=== PATIENT | female | born 1975 | race Caucasian/White ===

== ENCOUNTER 2017-05-18 23:14 | Inpatient (IN) | payer OTHER ==
--- NOTE | 2017-05-19 01:08 | PDOC ---
History of Present Illness - General Chief Complaint: Pain Stated Complaint: PAIN Time Seen by Provider: 05/19/17 00:55 - History of Present Illness Initial Comments: 05/19/17 01:04 Ms. Ceballos is a 41 yo female w/ no pmh who presents c/o midline epigastric pain. She reports the pain had initially started 3 weeks ago but went away, came back again a few days ago and again got better, and now has returned with increased intensity today. She cannot related it to food or any other trigger. Ms. Ceballos endorses associated nausea as well. She has not taken anything for the pain. The patient denies chest pain, shortness of breath, headache and dizziness. Denies fever, chills, vomit, diarrhea and constipation. Denies dysuria, frequency, urgency and hematuria. Allergies: NKDA 05/19/17 01:08 Past History - Past Medical History Allergies/Adverse Reactions: Allergies Allergy/AdvReac Type Severity Reaction Status Date / Time No Known Allergies Allergy Verified 05/19/17 00:24 Home Medications: Ambulatory Orders NK [No Known Home Medication] 05/19/17 - Suicide/Smoking/Psychosocial Hx Smoking History: Never smoked Have you smoked in the past 12 months: No Information on smoking cessation initiated: No Hx Alcohol Use: No Drug/Substance Use Hx: No Review of Systems - Review of Systems Comments:: 05/19/17 01:07 GENERAL/CONSTITUTIONAL: No fever or chills. No weakness. HEAD, EYES, EARS, NOSE AND THROAT: No change in vision. No ear pain or discharge. No sore throat. CARDIOVASCULAR: No chest pain or shortness of breath RESPIRATORY: No cough, wheezing, or hemoptysis. GASTROINTESTINAL: +Nausea with abdominal pain as described. No diarrhea or constipation. GENITOURINARY: No dysuria, frequency, or change in urination. MUSCULOSKELETAL: No joint or muscle swelling or pain. No neck or back pain. SKIN: No rash NEUROLOGIC: No headache, vertigo, loss of consciousness, or change in strength/ sensation. ENDOCRINE: No increased thirst. No abnormal weight change HEMATOLOGIC/LYMPHATIC: No anemia, easy bleeding, or history of blood clots. ALLERGIC/IMMUNOLOGIC: No hives or skin allergy. *Physical Exam - Vital Signs Last Vital Signs Temp Pulse Resp BP Pulse Ox 98.3 F 59 L 14 108/61 100 05/19/17 00:24 05/19/17 00:24 05/19/17 00:24 05/19/17 00:24 05/19/17 00:24 - Physical Exam Comments: 05/19/17 01:08 GENERAL: Awake, alert, and fully oriented, in no acute distress HEAD: No signs of trauma, normocephalic, atraumatic EYES: PERRLA, EOMI, sclera anicteric, conjunctiva clear ENT: Auricles normal inspection, hearing grossly normal, nares patent, oropharynx clear without exudates. Moist mucosa NECK: Normal ROM, supple, no lymphadenopathy, JVD, or masses LUNGS: No distress, speaks full sentences, clear to auscultation bilaterally HEART: Regular rate and rhythm, normal S1 and S2, no murmurs, rubs or gallops, peripheral pulses normal and equal bilaterally. ABDOMEN: +Epigastric tenderness. Soft, normoactive bowel sounds. No guarding, no rebound. No masses EXTREMITIES: Normal inspection, Normal range of motion, no edema. No clubbing or cyanosis. NEUROLOGICAL: Cranial nerves II through XII grossly intact. Normal speech, normal gait, no focal sensorimotor deficits SKIN: Warm, Dry, normal turgor, no rashes or lesions noted. ED Treatment Course - LABORATORY CBC & Chemistry Diagram: 05/19/17 01:30 05/19/17 01:30 Medical Decision Making - Medical Decision Making 05/19/17 01:11 Ms. Ceballos is a 41 yo male presenting w/ symptoms concerning for GERD. Workup begun with medications of zofran/NS/pepcid ordered for symptomatic relief. 05/19/17 03:45 Hemoglobin noted to be 6.5. Type and screen sent in preparation for transfusion. CT Abdomen/Pelvis ordered for further evaluation. 05/19/17 06:40 Patient signed out to oncoming team for further care. *DC/Admit/Observation/Transfer Diagnosis at time of Disposition: Low hemoglobin, Pain - Discharge Dispostion Admit: Yes - Referrals - Patient Instructions - Post Discharge Activity
[2017-05-19] MEDS ORDERED: SODIUM CHLORIDE 1,000 ML IV STA (01:09)
[2017-05-19] MEDS ORDERED: ONDANSETRON 4 MG/2 ML VIAL IVPUSH ONE (01:09)
[2017-05-19] MEDS ORDERED: FAMOTIDINE IV 20 MG/12 ML VIAL IVPB ONE (01:09)
[2017-05-19] MEDS ORDERED: MAG HYDROX/AL HYDROX/SIMETH 30 ML UNIT-DOSE CUP ONE (01:37)
[2017-05-19] MEDS ORDERED: FAMOTIDINE 20 MG/50 ML IVPB 20 MG/50 ML MG IVPB ONE (01:37)
[2017-05-19 01:45] LABS: BASO % 1.2 % (0-2.0); EOS % 1.8 % (0-4.5); HEMATOCRIT 23.8 % (32.4-45.2); LYMPH % 23.6 % (8-40); MCHC 27.4 g/dl (32.0-36.0); MEAN CELL VOLUME 52.6 fl (80-96); MEAN PLT VOLUME 8.7 fl (7.5-11.1); MONO % 10.5 % (3.8-10.2); NEUT % 62.9 % (42.8-82.8); PLATELET COUNT 523 K/MM3 (134-434); RBC 4.52 M/mm3 (3.60-5.2); RDW 21.1 % (11.6-15.6); WHITE BLOOD COUNT 5.9 K/mm3 (4.0-10.0)
[2017-05-19] MEDS ORDERED: MAG HYDROX/AL HYDROX/SIMETH 30 ML UNIT-DOSE CUP PO ONE (01:47)
[2017-05-19] MEDS ORDERED: ONDANSETRON 4 MG/2 ML VIAL ONE (01:49)
[2017-05-19 01:50] LABS: MCH 14.4 pg (25.7-33.7)
[2017-05-19 01:53] LABS: ADD RBC MORPHOLOGY YES; HEMOGLOBIN 6.5 GM/dL (10.7-15.3)
[2017-05-19 01:54] LABS: ANISOCYTOSIS 2+
[2017-05-19 02:06] LABS: ALBUMIN 3.3 g/dl (3.4-5.0); ALK PHOS 273 U/L (45-117); ANION GAP 9 (8-16); BILIRUBIN,TOTAL 1.8 mg/dL (0.2-1.0); BLOOD UREA NITROGEN 8 mg/dL (7-18); CALCIUM 8.6 mg/dL (8.5-10.1); CHLORIDE 107 mmol/L (98-107); CO2 25 mmol/L (21-32); CREATININE 0.4 mg/dL (0.55-1.02); GLUCOSE,RANDOM 100 mg/dL (74-106); LIPASE 95 U/L (73-393); SGOT/AST 299 U/L (15-37); SGPT/ALT 356 U/L (12-78); SODIUM 141 mmol/L (136-145); TOT PROT 7.1 g/dl (6.4-8.2)
--- NOTE | 2017-05-19 07:05 | PDOC ---
*Physical Exam - Vital Signs Last Vital Signs Temp Pulse Resp BP Pulse Ox 98.3 F 59 L 14 108/61 100 05/19/17 00:24 05/19/17 00:24 05/19/17 00:24 05/19/17 00:24 05/19/17 01:11 ED Treatment Course - LABORATORY CBC & Chemistry Diagram: 05/19/17 01:30 05/19/17 01:30 - ADDITIONAL ORDERS Additional order review: Laboratory Results 05/19/17 05/19/17 05/19/17 04:10 02:40 01:30 Sodium 141 Potassium 4.0 Chloride 107 Carbon Dioxide 25 Anion Gap 9 BUN 8 Creatinine 0.4 L Creat Clearance w eGFR > 60 Random Glucose 100 Calcium 8.6 Total Bilirubin 1.8 H AST 299 H ALT 356 H Alkaline Phosphatase 273 H Total Protein 7.1 Albumin 3.3 L Lipase 95 Stool Occult Blood Negative Blood Type O POSITIVE Antibody Screen Negative 05/19/17 01:30 RBC 4.52 MCV 52.6 L MCHC 27.4 L RDW 21.1 H MPV 8.7 Neutrophils % 62.9 Lymphocytes % 23.6 Monocytes % 10.5 H Eosinophils % 1.8 Basophils % 1.2 - Medications Given in the ED: ED Medications Discontinued Medications Generic Name Dose Route Start Last Admin Trade Name Freq PRN Reason Stop Dose Admin Al Hydroxide/Mg Hydroxide 30 ml 05/19/17 01:47 05/19/17 01:53 Mylanta Oral Suspension - PO 05/19/17 01:48 30 ml ONCE ONE Administration Famotidine 20 mg in 12 mls @ 144 mls/hr 05/19/17 01:09 05/19/17 01:48 Pepcid 20 Mg/12 Ml Push IVPB 05/19/17 01:13 144 mls/hr ONCE ONE Administration Sodium Chloride 1,000 mls @ 1,000 mls/hr 05/19/17 01:09 05/19/17 01:47 Normal Saline - IV 05/19/17 02:08 1,000 mls/hr ASDIR STA Administration Ondansetron HCl 4 mg 05/19/17 01:09 05/19/17 01:48 Zofran Injection IVPUSH 05/19/17 01:10 4 mg ONCE ONE Administration Medical Decision Making - Medical Decision Making 05/19/17 07:03 The patient was signed out to me by Dr. Seay, night team. The patient is a 41F with no PMH w/ epigastric pain found to have hgb of 6.5. Unsure if past anemia. Re-T+S. Pending CT scan. 2 units PRBC's ordered. 05/19/17 08:[address] Mcwilliams for inpatient admission. *DC/Admit/Observation/Transfer Diagnosis at time of Disposition: Low hemoglobin, Pain - Discharge Dispostion Condition at time of disposition: Stable Admit: Yes - Referrals - Patient Instructions - Post Discharge Activity
--- NOTE | 2017-05-19 08:23 | HP ---
CHIEF COMPLAINT: abdominal pain PCP: none HISTORY OF PRESENT ILLNESS: This is a 41 year old Armenian speaking female with no known past medical history , that does not have a primary physician, who presents with a 2 day history of a burning, non radiating, mid epigastric pain that is aggravated by eating and accompanied by nausea. She has been taking Advil intermittently to relieve pain. Patient also notes she had few episodes of black stool/diarrhea about two weeks ago. She denies fever, chills, vomiting, chest pain, sob, urinary symptoms , constipation. Denies recent travel. No hx of colon Ca in family. No colonoscopy in past. She did have an episode of anemia that she needed blood transfusion with she had hernia repair surgery. She has a history of heavy periods; LMP 04/30/17. Found to have hemoglobin of 6.5 in ER. Heme occult negative Recent Travel: none PAST MEDICAL HISTORY: NK PAST SURGICAL HISTORY: hernia repair; 1999? Social History: Smoking:no Alcohol:no Drugs: no Family History: Allergies No Known Allergies Allergy (Verified 05/19/17 00:24) HOME MEDICATIONS: Home Medications Medication Instructions Recorded NK [No Known Home Medication] 05/19/17 REVIEW OF SYSTEMS CONSTITUTIONAL: Absent: fever, chills, diaphoresis, generalized weakness, malaise, loss of appetite, weight change HEENT: Absent: rhinorrhea, nasal congestion, throat pain, throat swelling, difficulty swallowing, mouth swelling, ear pain, eye pain, visual changes CARDIOVASCULAR: Absent: chest pain, syncope, palpitations, irregular heart rate, lightheadedness , peripheral edema RESPIRATORY: Absent: cough, shortness of breath, dyspnea with exertion, orthopnea, wheezing, stridor, hemoptysis GASTROINTESTINAL: Positive: abdominal pain, distension, nausea Absent: , vomiting, diarrhea, constipation, melena, hematochezia GENITOURINARY: Absent: dysuria, frequency, urgency, hesitancy, hematuria, flank pain, genital pain MUSCULOSKELETAL: Absent: myalgia, arthralgia, joint swelling, back pain, neck pain SKIN: Absent: rash, itching, pallor HEMATOLOGIC/IMMUNOLOGIC: Absent: easy bleeding, easy bruising, lymphadenopathy, frequent infections ENDOCRINE: Absent: unexplained weight gain, unexplained weight loss, heat intolerance, cold intolerance NEUROLOGIC: Absent: headache, focal weakness or paresthesias, dizziness, unsteady gait, seizure, mental status changes, bladder or bowel incontinence PSYCHIATRIC: Absent: anxiety, depression, suicidal or homicidal ideation, hallucinations. PHYSICAL EXAMINATION Vital Signs - 24 hr 05/19/17 05/19/17 05/19/17 00:24 01:11 07:03 Temperature 98.3 F 98.0 F Pulse Rate 59 L Pulse Rate [ 68 Right Radial] Respiratory 14 14 Rate Blood Pressure 108/61 Blood Pressure 114/45 [Left Arm] O2 Sat by Pulse 100 100 96 Oximetry (%) 05/19/17 08:05 Temperature Pulse Rate Pulse Rate [ 64 Right Radial] Respiratory 17 Rate Blood Pressure Blood Pressure 116/42 [Left Arm] O2 Sat by Pulse 100 Oximetry (%) GENERAL: Awake, alert, and fully oriented, in no acute distress. HEAD: Normal with no signs of trauma. EYES: Pupils equal, round and reactive to light, extraocular movements intact, sclera anicteric, conjunctiva clear. No lid lag. EARS, NOSE, THROAT: Ears normal, nares patent, oropharynx clear without exudates. Moist mucous membranes. NECK: Normal range of motion, supple without lymphadenopathy, JVD, or masses. LUNGS: Breath sounds equal, clear to auscultation bilaterally. No wheezes, and no crackles. No accessory muscle use. HEART: Regular rate and rhythm, normal S1 and S2 without murmur, rub or gallop. ABDOMEN: Soft, mildly tender mid epigastrum, not distended, normoactive bowel sounds, no guarding, no rebound, no masses. No hepatomegaly or splenomegaly. Murhphy negative MUSCULOSKELETAL: Normal range of motion at all joints. No bony deformities or tenderness. No CVA tenderness. UPPER EXTREMITIES: 2+ pulses, warm, well-perfused. No cyanosis. No clubbing. No peripheral edema. LOWER EXTREMITIES: 2+ pulses, warm, well-perfused. No calf tenderness. No peripheral edema. NEUROLOGICAL: Cranial nerves II-XII intact. Normal speech. Normal gait. PSYCHIATRIC: Cooperative. Good eye contact. Appropriate mood and affect. SKIN: Warm, dry, normal turgor, no rashes or lesions noted, normal capillary refill. Laboratory Results - last 24 hr 05/19/17 05/19/17 05/19/17 01:30 01:30 02:40 WBC 5.9 RBC 4.52 Hgb 6.5 L* Hct 23.8 L MCV 52.6 L MCH 14.4 L MCHC 27.4 L RDW 21.1 H Plt Count 523 H MPV 8.7 Neutrophils % 62.9 Lymphocytes % 23.6 Monocytes % 10.5 H Eosinophils % 1.8 Basophils % 1.2 Hypochromia 3+ Anisocytosis 2+ Microcytosis 3+ Sodium 141 Potassium 4.0 Chloride 107 Carbon Dioxide 25 Anion Gap 9 BUN 8 Creatinine 0.4 L Creat Clearance w eGFR > 60 Random Glucose 100 Calcium 8.6 Total Bilirubin 1.8 H AST 299 H ALT 356 H Alkaline Phosphatase 273 H Total Protein 7.1 Albumin 3.3 L Lipase 95 Serum , Qual Stool Occult Blood Negative Blood Type Antibody Screen 05/19/17 05/19/17 04:10 06:50 WBC RBC Hgb Hct MCV MCH MCHC RDW Plt Count MPV Neutrophils % Lymphocytes % Monocytes % Eosinophils % Basophils % Hypochromia Anisocytosis Microcytosis Sodium Potassium Chloride Carbon Dioxide Anion Gap BUN Creatinine Creat Clearance w eGFR Random Glucose Calcium Total Bilirubin AST ALT Alkaline Phosphatase Total Protein Albumin Lipase Serum , Qual Negative Stool Occult Blood Blood Type O POSITIVE Antibody Screen Negative ASSESSMENT/PLAN: This is a 41 year old female with no known medical history, does not f/u with doctors, presents with 2 day history of mid epigastric abdominal pain, melena, and hemoglobin og 6.5; r/o GI bleed. #Microcytic Anemia ; poss anemia of chronic dis/iron def anemia/ r/o GI bleed; sec to large fibroid ? found on CT -IVF -Iron studies -transfuse 2U PRBC -monitor cbc for adequate response #abdominal pain with elevated LFTs; possible ulcer/gastritis; r/o hepatobiliary etiology -protonix 40mg qd -npo for now -abdominal CT showing normal liver with cystic changes with in hector hepatis; and dilation of biliary tree; no stones in gallbladder; and bilateral hydronephrosis with obstructing large uterus and large fibroid -abdominal MRI pending -hepatitis panel -GI consulted/Plastics Fabricator And Assembler consulted FEN: Fluids: ns 125mls hr Electrolytes:wnl Diet: npo VTE: scds Disposition: inpt med surg Case discussed with attending Dr. Kathi Mcwilliams-PGY 2 Problem List - Problem (1) Abdominal pain Code(s): R10.9 - UNSPECIFIED ABDOMINAL PAIN (2) Abnormal liver enzymes Code(s): R74.8 - ABNORMAL LEVELS OF OTHER SERUM ENZYMES (3) Anemia Code(s): D64.9 - ANEMIA, UNSPECIFIED Qualifiers: Anemia type: iron deficiency Visit type - Emergency Visit Emergency Visit: Yes ED Registration Date: 05/19/17 Care time: The patient presented to the Emergency Department on the above date and was hospitalized for further evaluation of their emergent condition. - New Patient This patient is new to me today: Yes Date on this admission: 05/20/17 - Critical Care Critical Care patient: No Hospitalist Screening - Colonoscopy Questionnaire Colonoscopy Questionnaire: none - Patient: 50 - 75 years old and never had a screening colonoscopy: No History of colon or rectal polyps, or CA: No History of IBD, Crohn's disease or UC: No History of abdominal radiation therapy as a child: No - Relative: 1 with colon or rectal CA, or polyps at age 60 or younger: No Colon or rectal CA diagnosed at age 45 or younger: No Multiple relatives with colon or rectal CA: No - Outcome: Screening Result: Negative Screen
[2017-05-19] MEDS: DEXTROSE 5%-NORMAL SALINE 1,000 ML IV SCH (08:34)
--- NOTE | 2017-05-19 08:52 | EKG ---
Test Reason : Blood Pressure : / mmHG Vent. Rate : 055 BPM Atrial Rate : 055 BPM P-R Int : 138 ms QRS Dur : 080 ms QT Int : 460 ms P-R-T Axes : 049 036 025 degrees QTc Int : 440 ms SINUS BRADYCARDIA OTHERWISE NORMAL ECG NO PREVIOUS ECGS AVAILABLE Confirmed by Tomy Fair MD ([id number]) on 05/19/2017 8:52:25 AM Referred By: Confirmed By:Tomy Fair MD
--- NOTE | 2017-05-19 09:47 | PN ---
Teaching Attending Note Name of Resident: Odalis Mcwilliams ATTENDING PHYSICIAN STATEMENT I saw and evaluated the patient. I reviewed the resident's note and discussed the case with the resident. I agree with the resident's findings and plan as documented. SUBJECTIVE: This is a 41 year old woman with a history of anemia who comes to the ED complaining of burning epigastric pain with nausea x 2 days. Symptoms are worse with meals. She has been taking Advil for her symptoms. She reports having black stool about two weeks ago and heavy periods. She required a transfusion prior to hernia surgery. She has not had a GI evaluation for anemia. OBJECTIVE: Vital Signs Period Temp Pulse Resp BP Sys/Santiago Pulse Ox Last 24 Hr 98.0 F-98.3 F 59-68 14-17 108-116/42-61 96-100 HEART: S1S2, RRR LUNGS: Clear ABDOMEN: Obese, soft, non-tender, non-distended, normal BS EXTREMITIES: No edema Laboratory Tests 05/19/17 05/19/17 05/19/17 01:30 01:30 02:40 WBC 5.9 RBC 4.52 Hgb 6.5 L* Hct 23.8 L MCV 52.6 L MCH 14.4 L MCHC 27.4 L RDW 21.1 H Plt Count 523 H MPV 8.7 Neutrophils % 62.9 Lymphocytes % 23.6 Monocytes % 10.5 H Eosinophils % 1.8 Basophils % 1.2 Hypochromia 3+ Anisocytosis 2+ Microcytosis 3+ Sodium 141 Potassium 4.0 Chloride 107 Carbon Dioxide 25 Anion Gap 9 BUN 8 Creatinine 0.4 L Creat Clearance w eGFR > 60 Random Glucose 100 Calcium 8.6 Total Bilirubin 1.8 H AST 299 H ALT 356 H Alkaline Phosphatase 273 H Total Protein 7.1 Albumin 3.3 L Lipase 95 Serum , Qual Stool Occult Blood Negative Blood Type Antibody Screen 05/19/17 05/19/17 05/19/17 04:10 06:50 08:10 WBC RBC Hgb Hct MCV MCH MCHC RDW Plt Count MPV Neutrophils % Lymphocytes % Monocytes % Eosinophils % Basophils % Hypochromia Anisocytosis Microcytosis Sodium Potassium Chloride Carbon Dioxide Anion Gap BUN Creatinine Creat Clearance w eGFR Random Glucose Calcium Total Bilirubin AST ALT Alkaline Phosphatase Total Protein Albumin Lipase Serum , Qual Negative Stool Occult Blood Blood Type O POSITIVE O POSITIVE Antibody Screen Negative Home Medications Medication Instructions Recorded NK [No Known Home Medication] 05/19/17 ASSESSMENT AND PLAN: This is a 41 year old woman with a history of anemia requiring transfusion who presented to the ED with 2 days of epigastric pain and nausea. She reports heavy periods and recent black stool. She was found to have Hgb 6.5, MCV 52.6, AST 299, ALT 356, alk phos 273. Stool is heme negative. CT shows enlarged fibroid uterus with bilateral hydroureteronephrosis. 1. Microcytic anemia with epigastric pain, nausea, recent black stool, hepatic transaminitis - Rule-out hepatobiliary cause of her pain and nausea - Menorrhagia from uterine fibroids is likely cause of microcytic anemia but must consider PUD - NPO - Start Protonix - Check iron studies - Transfuse 2 units PRBCs - Monitor hemoglobin - GI, General Ledger Accountant consults 2. Obesity
--- NOTE | 2017-05-19 11:18 | CON.GI ---
Consult Consult Specialty:: GI: Dr. Anamaria gamboa for Dr. Gunter Referred by:: Hospitalist Service Reason for Consultation:: Anemia - History of Present Illness Chief Complaint: I had pain (points towards epigastrium). History obtained via Ms. Ceballos's nurse Jess who is yakut speaking History of Present Illness: 41F admitted through [facility] ER for evaluation of epigastric pain. She describes the pain as sharp, intermittent, occurring with or without meals and improved with advil. While it did not worsen her pain, she felt more bloated after meals this week. She was taking 1-2 advils intermittently due to this pain over the last three days however yesterday it did not help and therefore sought evaluation in the ER. In the ER triage vitals were T: 98.3 P: 59 BP: 108/61. She was found to be anemic with hgb 6.5 and guaiac negative. LFTs were elevated as well including transaminases / ALP and bilirubinn. CT scan revealed ? cystic structure in the helena hepatis (? tortuous cystic duct) and She denies rectal bleeding, vomiting of blood but states that 2 weeks ago she vomited (food material) and had dark BM's. She did take pepto bismol at this time but believes that she had taken it after the episode of dark BM's. The pain is improved today. She denies a known history of liver disease / IVDU. She has had blood transfusions last year prior to a hernia repair (states done at [facility] last year). She has never had an upper endoscopy or colonoscopy. There is no family history of colorectal cancer or other GI malignancy. She has no regular medical care as an outpatient but does know that she has been told of anemia. She has chronically heavy menstrual periods with passage of clots at times. - History Source History Provided By: Patient Limitations to Obtaining History: No Limitations - Past Medical History Heme/Onc: Yes: Anemia - Past Surgical History Past Surgical History: Yes: Hernia Repair (umbilical hernia repair) - Alcohol/Substance Use Hx Alcohol Use: No - Smoking History Smoking history: Never smoked Have you smoked in the past 12 months: No - Social History Usual Living Arrangement: With Spouse ADL: Independent Occupation: Unemployed Place of : Other ([place]) History of Recent Travel: No Home Medications - Allergies Allergies/Adverse Reactions: Allergies Allergy/AdvReac Type Severity Reaction Status Date / Time No Known Allergies Allergy Verified 05/19/17 00:24 - Home Medications Home Medications: Ambulatory Orders NK [No Known Home Medication] 05/19/17 Family Disease History - Family Disease History Family Disease History: Other: Father (alive: healthy), Mother (: 55: asthma ), Brother (2, healthy), Sister (3, healthy), Son (1 healthy), Daughter (2, 1 with raynaud's) Other Family History: No family history of colorectal cancer or other GI malignancy Review of Systems - Review of Systems Constitutional: denies: Chills, Fever, Unintentional Wgt. Loss Cardiovascular: denies: Chest Pain Respiratory: denies: SOB Gastrointestinal: reports: Abdominal Pain, Bloating, Indigestion. denies: Constipation, Diarrhea Physical Exam-GI Vital Signs: Vital Signs Temperature 98.0 F 05/19/17 07:03 Pulse Rate 64 05/19/17 08:05 Respiratory Rate 17 05/19/17 08:05 Blood Pressure 116/42 05/19/17 08:05 O2 Sat by Pulse Oximetry (%) 100 05/19/17 08:05 Constitutional: Yes: Calm Eyes: No: Sclera Icterus Cardiovascular: Yes: Regular Rate and Rhythm Respiratory: Yes: CTA Bilaterally Gastrointestinal Inspection: No: Distention, Scars ...Auscultate: Yes: Normoactive Bowel Sounds ...Palpate: Yes: Tenderness (very mild TTP in epigastrium). No: Hepatomegaly, Splenomegaly ...Percussion: No: Tympanitic ...Rectal Exam: Yes: Other (with sort worker present: no external lesions, no masses, no stool/blood/melena) Edema: No (No LE edema) Neurological: Yes: Alert, Oriented Labs: CBC, BMP 05/19/17 01:30 05/19/17 01:30 Hepatic Panel Total Bilirubin 2.4 mg/dL (0.2-1.0) H D 05/19/17 11:12 Direct Bilirubin 1.7 mg/dL (0.0-0.2) H 05/19/17 11:12 AST 276 U/L (15-37) H 05/19/17 11:12 ALT 369 U/L (12-78) H 05/19/17 11:12 Alkaline Phosphatase 265 U/L (45-117) H 05/19/17 11:12 Albumin 3.2 g/dl (3.4-5.0) L 05/19/17 11:12 Imaging - Results Cat Scan: Report Reviewed, Image Reviewed Problem List - Problems (1) Abnormal liver enzymes Assessment/Plan: With upper abdominal complaints, hepatobiliary pathology such as retained CBD stone, portal vein thrombus / alternate pathology needs to be excluded. She denies known liver disease but has poor medical follow-up Plan: Ordered triple phase MRI of the abdomen with and without contrast with MRCP Ordered hepatitis serologies Monitor LFTs Avoid hepatotoxic agents Code(s): R74.8 - ABNORMAL LEVELS OF OTHER SERUM ENZYMES (2) Anemia Assessment/Plan: Component of Iron deficiency. ? if related to cableway operator source of blood source / fibroid uterus with upper GI complaints / ? dark BM's previously I did discuss EGD to exclude upper GI pathology via slab grinder (patient's nurse). We discussed potential risks of the procedure like but not limited to bleeding, perforation requiring surgery to repair, infection, sedation medication effects all of which could be potentially life threatening. she has agreed. Will determine timing of EGD based on MRI findings. If she has significant biliary pathology requiring ERCP, EGD could be done just prior to this Code(s): D64.9 - ANEMIA, UNSPECIFIED Qualifiers: Anemia type: iron deficiency (3) Low hemoglobin Code(s): D64.9 - ANEMIA, UNSPECIFIED
[2017-05-19 11:36] LABS: BASO % 1.4 % (0-2.0); EOS % 2.4 % (0-4.5); LYMPH % 27.5 % (8-40); MCHC 26.9 g/dl (32.0-36.0); MEAN CELL VOLUME 52.8 fl (80-96); MEAN PLT VOLUME 8.5 fl (7.5-11.1); MONO % 12.3 % (3.8-10.2); NEUT % 56.4 % (42.8-82.8); PLATELET COUNT 513 K/MM3 (134-434); RBC 4.55 M/mm3 (3.60-5.2); RDW 21.4 % (11.6-15.6); WHITE BLOOD COUNT 4.4 K/mm3 (4.0-10.0)
[2017-05-19 11:41] LABS: MCH 14.2 pg (25.7-33.7)
[2017-05-19 11:42] LABS: HEMOGLOBIN 6.5 GM/dL (10.7-15.3)
[2017-05-19 11:43] LABS: ADD RBC MORPHOLOGY YES
[2017-05-19 11:47] LABS: ALBUMIN 3.2 g/dl (3.4-5.0); ANION GAP 6 (8-16); BILIRUBIN,DIRECT 1.7 mg/dL (0.0-0.2); BILIRUBIN,TOTAL 2.4 mg/dL (0.2-1.0); BLOOD UREA NITROGEN 6 mg/dL (7-18); CALCIUM 7.8 mg/dL (8.5-10.1); CHLORIDE 111 mmol/L (98-107); CO2 23 mmol/L (21-32); CREATININE 0.5 mg/dL (0.55-1.02); GLUCOSE,RANDOM 85 mg/dL (74-106); SGOT/AST 276 U/L (15-37); SGPT/ALT 369 U/L (12-78); SODIUM 140 mmol/L (136-145); TOT PROT 6.7 g/dl (6.4-8.2)
[2017-05-19 11:50] LABS: ALK PHOS 265 U/L (45-117)
[2017-05-19 11:54] VITALS: BMI 35.7
[2017-05-19 12:21] LABS: INR 1.11 (0.82-1.09); PROTHROMBIN TIME (PATIENT) 12.5 SEC (9.98-11.88)
[2017-05-19] MEDS: PANTOPRAZOLE SODIUM 40 MG VIAL IVPUSH SCH (12:23)
[2017-05-19 14:58] LABS: ANISOCYTOSIS 2+; TARGET CELLS 2+
[2017-05-20] MEDS ORDERED: morphine SULFATE 4 MG/ML VIAL IVPUSH ONE ×2 (00:24→04:20)
[2017-05-20] MEDS: DEXTROSE 5%-NORMAL SALINE 1,000 ML IV SCH ×2 (04:03→10:23)
[2017-05-20 06:08] LABS: SERUM IRON SATURATION 2 (15-55); TOTAL IRON BINDING CAPACITY 450 (250-450); UIBC 443 ug/dL (131-425)
[2017-05-20 07:50] LABS: HEMATOCRIT 29.8 % (32.4-45.2); HEMOGLOBIN 8.5 GM/dL (10.7-15.3); MCHC 28.6 g/dl (32.0-36.0); MEAN CELL VOLUME 59.5 fl (80-96); MEAN PLT VOLUME 8.5 fl (7.5-11.1); PLATELET COUNT 444 K/MM3 (134-434); RDW 28.4 % (11.6-15.6); WHITE BLOOD COUNT 4.7 K/mm3 (4.0-10.0)
[2017-05-20 07:56] LABS: ANION GAP 11 (8-16); BLOOD UREA NITROGEN 6 mg/dL (7-18); CALCIUM 8.4 mg/dL (8.5-10.1); CHLORIDE 107 mmol/L (98-107); CO2 22 mmol/L (21-32); GLUCOSE,RANDOM 92 mg/dL (74-106); POTASSIUM 4.4 mmol/L (3.5-5.1); SGOT/AST 178 U/L (15-37); SGPT/ALT 324 U/L (12-78); SODIUM 140 mmol/L (136-145)
[2017-05-20 07:59] LABS: ALK PHOS 260 U/L (45-117); BILIRUBIN,TOTAL 4.9 mg/dL (0.2-1.0); CREATININE 0.5 mg/dL (0.55-1.02); TOT PROT 6.6 g/dl (6.4-8.2)
[2017-05-20] MEDS: PANTOPRAZOLE SODIUM 40 MG VIAL IVPUSH SCH (09:35)
[2017-05-20] MEDS ORDERED: CEFTRIAXONE 1 G/50 ML PREMIX 50 ML IVPB SCH (10:00)
--- NOTE | 2017-05-20 10:58 | PN ---
Progress Note (short form) - Note Progress Note: MRCP reevaled choledocholithiasis. Discussed finding with Ms. 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 Her daughter was present at bedside. We discussed ERCP for stone extraction and potential risks of the procedure like but not limited to bleeding, perforation requiring surgery to repair, infection, sedation medication effects, pancreatitis (5-10% of cases) all of which could be potentially life threatening. She has agreed to the procedure. EGD will be performed just prior to ERCP to assess for course of anemia. Ms. Ceballos aware of that as well. For now: NPO IV hydration IV Abx Problem List - Problems (1) Low hemoglobin Code(s): D64.9 - ANEMIA, UNSPECIFIED (2) Abnormal liver enzymes Code(s): R74.8 - ABNORMAL LEVELS OF OTHER SERUM ENZYMES (3) Anemia Code(s): D64.9 - ANEMIA, UNSPECIFIED Qualifiers: Anemia type: iron deficiency
[2017-05-20] MEDS ORDERED: ACETAMINOPHEN 325 MG TABLET (FP) PO ONE (12:00)
[2017-05-20 12:21] LABS: BILIRUBIN,DIRECT 3.5 mg/dL (0.0-0.2)
[2017-05-20] MEDS ORDERED: ONDANSETRON 4 MG/2 ML VIAL ONE (13:03)
--- NOTE | 2017-05-20 14:01 | PN ---
Physical Exam: SUBJECTIVE: Patient seen and examined at bedside. denies any abdominal pain , N/ V/D/C. NPO for possible ERCP today. OBJECTIVE: Vital Signs Period Temp Pulse Resp BP Sys/Santiago Pulse Ox Last 24 Hr 97.6 F-98.3 F 57-62 18-20 108-123/59-67 100-100 GENERAL: AAOx3 in NAD HEAD: NC/AT EYES: EOMI, Conjunctiva clear, sclera anicteric ENT: moist mucous membrane NECK: Supple, no JVD LUNGS: CTA B/L, no crackles no wheezing no accessory muscle use. HEART: RRR, NSR, normal s1, s2,no M/R/G ABDOMEN: Soft, ND, NT, +BS 4 Q, no CVA Tenderness LOWER EXTREMITIES: no edema, +2DP pulse, NEUROLOGICAL: No focal deficit. Normal speech. gait not observed. PSYCHIATRIC: Cooperative. Good eye contact. Appropriate mood and affect. SKIN: Warm, dry, Laboratory Results - last 24 hr 05/19/17 05/19/17 05/19/17 04:10 11:12 11:12 WBC RBC Hgb Hct MCV MCH MCHC RDW Plt Count MPV Hypochromia 3+ Anisocytosis 2+ Microcytosis 2+ Target Cells 2+ Sodium Potassium Chloride Carbon Dioxide Anion Gap BUN Creatinine Creat Clearance w eGFR Random Glucose Calcium Iron 7 L TIBC 450 Iron Saturation 2 L Total Bilirubin Direct Bilirubin AST ALT Alkaline Phosphatase Total Protein Albumin Hepatitis C Antibody Blood Type O POSITIVE Antibody Screen Negative Crossmatch See Detail 05/19/17 05/20/17 05/20/17 11:46 06:00 06:00 WBC 4.7 RBC 5.00 Hgb 8.5 L D Hct 29.8 L D MCV 59.5 L D MCH 17.0 L MCHC 28.6 L RDW 28.4 H Plt Count 444 H MPV 8.5 Hypochromia Anisocytosis Microcytosis Target Cells Sodium 140 Potassium 4.4 Chloride 107 Carbon Dioxide 22 Anion Gap 11 BUN 6 L Creatinine 0.5 L Creat Clearance w eGFR > 60 Random Glucose 92 Calcium 8.4 L Iron TIBC Iron Saturation Total Bilirubin 4.9 H D Direct Bilirubin 3.5 H AST 178 H ALT 324 H Alkaline Phosphatase 260 H Total Protein 6.6 Albumin 3.0 L Hepatitis C Antibody 0.2 Blood Type Antibody Screen Crossmatch Active Medications Generic Name Dose Route Start Last Admin Trade Name Joey PRN Reason Stop Dose Admin Dextrose/Sodium Chloride 1,000 mls @ 125 mls/hr 05/19/17 08:15 05/20/17 10:23 D5-Ns - IV Not Given ASDIR CONCEPCION Metronidazole 500 mg in 100 mls @ 100 mls/hr 05/20/17 02:00 05/20/17 10:21 Flagyl 500mg Premixed Ivpb - IVPB 100 mls/hr Q8H-IV CONCEPCION Administration Levofloxacin 750 mg in 150 mls @ 100 mls/hr 05/20/17 00:45 05/20/17 06:01 Levaquin 750 Mg Premixed Ivpb - IVPB 05/21/17 00:44 100 mls/hr DAILY CONCEPCION Administration CEFTRIAXONE 1 G/50 ML PREMIX 50 mls @ 100 mls/hr 05/20/17 10:00 05/20/17 09: 35 Ceftriaxone 1 Gm-D5w Bag IVPB 100 mls/hr DAILY CONCEPCION Administration Pantoprazole Sodium 40 mg 05/19/17 10:00 05/20/17 09:35 Protonix Iv IVPUSH 40 mg DAILY CONCEPCION Administration CBC, BMP 05/20/17 06:00 05/20/17 06:00 ASSESSMENT/PLAN: This is a 41 year old female with no known medical history, does not f/u with doctors, presents with 2 day history of mid epigastric abdominal pain, melena, and hemoglobin og 6.5; r/o GI bleed. # Acute cholecystitis and choledocholithiasis , * S/P ERCP which found 2 big gall stones , could not be removed, was pushed proximally and stent was placd in VBD * Advnace diet to clear liquids * Continue Abx Ceftriaxone and flagyl * Pain control * Follow up in 3 months for stent removal. * elective surgery for cholecystectomy on Thursday * Monitor liver function test. * protonix 40 mg po daily * hep panel # Microcytic anemia due to Low oral intake vs GI bleed vs fibroid bleed * Iron studies pending * H/H 8.5/29.8 monitor S/P 2 units of PRBCS, monitor CBC * transfuse if drop below 7 * ObGyn consult * GI consulted for possibel EGD #FEN: * Fluids:NS 125mls hr * Electrolytes:wnl * Diet: npo advanced to clear liquids # proph * VTE: scds, no chemoprophylaxis * GI : protonix 40 mg po daily #Disposition: admit to med surg Visit type - Emergency Visit Emergency Visit: Yes ED Registration Date: 05/19/17 Care time: The patient presented to the Emergency Department on the above date and was hospitalized for further evaluation of their emergent condition. - New Patient This patient is new to me today: Yes Date on this admission: 05/21/17 - Critical Care Critical Care patient: No
[2017-05-20 14:15] LABS: HBSAG SCREEN Negative (Negative); HEP A AB, IGM Negative (Negative); HEP B CORE AB, TOT Negative (Negative)
--- NOTE | 2017-05-20 15:30 | PN ---
Progress Note (short form) - Note Progress Note: GI Procedure NOte: Please see ERCP report. Two stones were impacted in the proximal CBD which could not be extracted today. They were pushed proximally and a stent was placed to relieve the obstruction. Using a Russian speaking staff interpreter she was informed of the need for a cholecystectomy now and then a repeat ERCP in 3 months after a course of [place]. Please refer her to our ofice after discharge.
[2017-05-20] MEDS ORDERED: LACTATED RINGERS SOLUTION 1,000 ML/1,000 ML INFUS.BAG IV SCH ×2 (15:45→21:45)
--- NOTE | 2017-05-20 15:53 | PN ---
Teaching Attending Note Name of Resident: Kj Min ATTENDING PHYSICIAN STATEMENT I saw and evaluated the patient. I reviewed the resident's note and discussed the case with the resident. I agree with the resident's findings and plan as documented. SUBJECTIVE:seen just after ERCP , interpretation provided by Dr. Mackay nausea, abd pain in RUQ a,and epigastric area OBJECTIVE: NAD , icteric sclear, jaundiced skin CV; RRR Lung s: CTAB ext: no edema Abd: soft, ND, TTP in epigasrtric aera and RUQ. no rebound tenderness or quarding ASSESSMENT AND PLAN: 41 y/o lady with no significant PMH who presented with abd pain , and was found to have acute cholecystitis and choledocolithiasis 1- acute cholecystitis and choledocolithiasis : s/p ERCP this am , with 2 choledocolithiasis , pushed proximally and a stent placed. -cont LR ordered already - start pain meds - clears - ceftriaxone and flagyl - surgical consult - need f/u in 3 months for stent and stone removal - follow LFTS 2- Iron def anemia : need to r/o GI bleed. - for EGD this admission . - monitor HB after transfusion . 3- SCds
[2017-05-20] MEDS: MORPHINE SULFATE 10 MG/1 ML *VIAL IVPUSH PRN ×2 (16:55→23:38)
[2017-05-20] MEDS ORDERED: ONDANSETRON 4 MG/2 ML VIAL IVPB PRN (18:58)
--- NOTE | 2017-05-20 23:01 | CONSULT ---
- Consultation REQUESTING PROVIDER: CONSULT REQUEST: We have been asked to surgically evaluate this patient for ( specify). PCP:Ashley Dueñas HISTORY OF PRESENT ILLNESS:41 y/o female presented w/ n/v/epigastric abdominal pain; w/u revealed cholelithiasis and choledocholithiasis and anemia and fibroids and hydro. PMHx: none PSHx: none Home Medications Medication Instructions Recorded NK [No Known Home Medication] 06/13/15 NK [No Known Home Medication] 05/19/17 Allergies Allergy/AdvReac Type Severity Reaction Status Date / Time No Known Allergies Allergy Verified 06/13/15 19:16 . PHYSICAL EXAM: GENERAL: Awake, alert, and fully oriented, in no acute distress. HEAD: Normal with no signs of trauma. EYES: PERRL, sclera icteric, conjunctiva clear. NECK: Normal ROM, supple without lymphadenopathy, JVD, or masses. ABDOMEN: Soft, nontender, not distended, normoactive bowel sounds, no guarding, no rebound, no masses. No organomegaly. MUSCULOSKELETAL: Normal ROM at all joints. No bony deformities or tenderness. No CVA tenderness. UPPER EXTREMITIES: 2+ pulses, warm, well-perfused. No cyanosis. Cap refill <2 seconds. No peripheral edema. LOWER EXTREMITIES: 2+ pulses, warm, well-perfused. No calf tenderness. No peripheral edema. NEUROLOGICAL: Normal speech, gait not observed. PSYCH: Cooperative. Good eye contact. Appropriate mood and affect. SKIN: Warm, dry, normal turgor, no rashes or lesions noted. Vital Signs Temperature 97.9 F 05/20/17 20:30 Pulse Rate 73 05/20/17 20:30 Respiratory Rate 18 05/20/17 20:30 Blood Pressure 121/60 05/20/17 20:30 O2 Sat by Pulse Oximetry (%) 97 05/20/17 20:30 Lab Results WBC 4.7 K/mm3 (4.0-10.0) 05/20/17 06:00 RBC 5.00 M/mm3 (3.60-5.2) 05/20/17 06:00 Hgb 8.5 GM/dL (10.7-15.3) L D 05/20/17 06:00 Hct 29.8 % (32.4-45.2) L D 05/20/17 06:00 MCV 59.5 fl (80-96) L D 05/20/17 06:00 MCHC 28.6 g/dl (32.0-36.0) L 05/20/17 06:00 RDW 28.4 % (11.6-15.6) H 05/20/17 06:00 Plt Count 444 K/MM3 (134-434) H 05/20/17 06:00 Sodium 140 mmol/L (136-145) 05/20/17 06:00 Potassium 4.4 mmol/L (3.5-5.1) 05/20/17 06:00 Chloride 107 mmol/L (98-107) 05/20/17 06:00 Carbon Dioxide 22 mmol/L (21-32) 05/20/17 06:00 Anion Gap 11 (8-16) 05/20/17 06:00 BUN 6 mg/dL (7-18) L 05/20/17 06:00 Creatinine 0.5 mg/dL (0.55-1.02) L 05/20/17 06:00 Random Glucose 92 mg/dL (74-106) 05/20/17 06:00 Calcium 8.4 mg/dL (8.5-10.1) L 05/20/17 06:00 Blood Type O POSITIVE 05/19/17 08:10 Antibody Screen Negative 05/19/17 04:10 INR 1.11 (0.82-1.09) 05/19/17 11:46 w/u to date reviewed IMP: choledocholithiasis s/p ERCP/sphincterotomy and stent placement; anemia; fibroids PLAN: For lap dalia 05/22/17; r/b/t/a's d/w the patient in [place]e; continue IVF /IVABS/trend LFT's and bili. Tomas Sheridan MD FACS Visit type - Case Type Case Type: ED Admission - Emergency Emergency Visit: Yes ED Registration Date: 05/19/17 Care time: The patient presented to the Emergency Department on the above date and was hospitalized for further evaluation of their emergent condition. - New patient This patient is new to me today: Yes Date on this admission: 05/20/17 - Critical Care Critical Care patient: No
[2017-05-21] MEDS ORDERED: POLYETHYLENE GLYCOL 3350 119 GM BTL PO ONE (00:06)
[2017-05-21] MEDS ORDERED: LACTATED RINGERS SOLUTION 1,000 ML/1,000 ML INFUS.BAG IV SCH ×2 (03:45→09:45)
[2017-05-21 07:19] LABS: BASO % 0.8 % (0-2.0); EOS % 1.5 % (0-4.5); HEMATOCRIT 27.9 % (32.4-45.2); HEMOGLOBIN 8.2 GM/dL (10.7-15.3); LYMPH % 19.2 % (8-40); MCHC 29.4 g/dl (32.0-36.0); MEAN PLT VOLUME 8.5 fl (7.5-11.1); MONO % 10.7 % (3.8-10.2); NEUT % 67.8 % (42.8-82.8); PLATELET COUNT 419 K/MM3 (134-434); RBC 4.81 M/mm3 (3.60-5.2); RDW 27.3 % (11.6-15.6)
[2017-05-21 07:44] LABS: BILIRUBIN,DIRECT 1.5 mg/dL (0.0-0.2)
[2017-05-21] MEDS ORDERED: LIDOCAINE VISCOUS 2% ORAL/TOP 20 ML UNIT-DOSE CUP ONE (07:47)
[2017-05-21 08:14] LABS: ALBUMIN 2.9 g/dl (3.4-5.0); ANION GAP 6 (8-16); BLOOD UREA NITROGEN 5 mg/dL (7-18); CALCIUM 8.1 mg/dL (8.5-10.1); CHLORIDE 109 mmol/L (98-107); CO2 26 mmol/L (21-32); CREATININE 0.6 mg/dL (0.55-1.02); GLUCOSE,RANDOM 80 mg/dL (74-106); POTASSIUM 3.7 mmol/L (3.5-5.1); SGOT/AST 117 U/L (15-37); SGPT/ALT 257 U/L (12-78); SODIUM 141 mmol/L (136-145)
[2017-05-21 08:16] LABS: ALK PHOS 247 U/L (45-117); BILIRUBIN,TOTAL 2.6 mg/dL (0.2-1.0); TOT PROT 6.1 g/dl (6.4-8.2)
[2017-05-21] MEDS ORDERED: PHYTONADIONE 5 MG TABLET PO ONE (09:15)
[2017-05-21] MEDS ORDERED: DEXTROSE 5%-0.45% SALINE 1,000 ML IV SCH ×2 (11:00)
[2017-05-21] MEDS: PANTOPRAZOLE SODIUM 40 MG VIAL IVPUSH SCH (11:11)
[2017-05-21] MEDS: CEFTRIAXONE 1 G/50 ML PREMIX 50 ML IVPB SCH (11:12)
--- NOTE | 2017-05-21 11:20 | PN ---
Addendum entered and electronically signed by Kj Min, RESIDENT 05/21/17 11 :44: pt has an icteric sclera on the eye exam . Original Note: Physical Exam: SUBJECTIVE: Patient seen and examined at bedside. denies any fever, chills, N/V/ D/C. no abdominal pain or chest pain.feliing better in general, h/h stable. will advance her diet and NPO after mid night for lab cholectomy tomorrow. OBJECTIVE: Vital Signs Period Temp Pulse Resp BP Sys/Santiago Pulse Ox Last 24 Hr 97.8 F-98.6 F 66-75 14-18 102-126/50-65 97-100 GENERAL: AAOx3 in NAD HEAD: NC/AT EYES: EOMI, Conjunctiva clear, sclera anicteric ENT: moist mucous membrane NECK: Supple, no JVD LUNGS: CTA B/L, no crackles no wheezing no accessory muscle use. HEART: RRR, NSR, normal s1, s2,no M/R/G(systolic murmur 2/6 in LLSB per the attending) ABDOMEN: Soft, ND, NT, +BS 4 Q, no CVA Tenderness. Fibroid mass tennis ball size in the mid abdomen . LOWER EXTREMITIES: no edema, +2DP pulse,perferal venous changes. NEUROLOGICAL: No focal deficit. Normal speech. gait not observed. PSYCHIATRIC: Cooperative. Good eye contact. Appropriate mood and affect. SKIN: Warm, dry, Laboratory Results - last 24 hr 05/19/17 05/20/17 05/21/17 11:46 06:00 06:00 WBC 6.0 RBC 4.81 Hgb 8.2 L Hct 27.9 L MCV 58.0 L MCH 17.0 L MCHC 29.4 L RDW 27.3 H Plt Count 419 MPV 8.5 Neutrophils % 67.8 D Lymphocytes % 19.2 D Monocytes % 10.7 H Eosinophils % 1.5 Basophils % 0.8 Sodium 140 Potassium 4.4 Chloride 107 Carbon Dioxide 22 Anion Gap 11 BUN 6 L Creatinine 0.5 L Creat Clearance w eGFR > 60 Random Glucose 92 Calcium 8.4 L Total Bilirubin 4.9 H D Direct Bilirubin 3.5 H AST 178 H ALT 324 H Alkaline Phosphatase 260 H C-Reactive Protein Total Protein 6.6 Albumin 3.0 L Total Amylase Lipase Hep A IgM Ab Confirm Negative Hepatitis A Ab Total Positive H Hep Bs Antigen Negative Hep Bs Antibody Non reactive Hep B Core Total Ab Negative Hepatitis C Antibody 0.2 05/21/17 05/21/17 06:00 06:00 WBC RBC Hgb Hct MCV MCH MCHC RDW Plt Count MPV Neutrophils % Lymphocytes % Monocytes % Eosinophils % Basophils % Sodium 141 Potassium 3.7 Chloride 109 H Carbon Dioxide 26 Anion Gap 6 L BUN 5 L Creatinine 0.6 Creat Clearance w eGFR > 60 Random Glucose 80 Calcium 8.1 L Total Bilirubin 2.6 H D Direct Bilirubin 1.5 H AST 117 H ALT 257 H Alkaline Phosphatase 247 H C-Reactive Protein 0.3 Total Protein 6.1 L Albumin 2.9 L Total Amylase 14 L Lipase 44 L Hep A IgM Ab Confirm Hepatitis A Ab Total Hep Bs Antigen Hep Bs Antibody Hep B Core Total Ab Hepatitis C Antibody Active Medications Generic Name Dose Route Start Last Admin Trade Name Freq PRN Reason Stop Dose Admin Metronidazole 500 mg in 100 mls @ 100 mls/hr 05/20/17 02:00 05/21/17 11:11 Flagyl 500mg Premixed Ivpb - IVPB 100 mls/hr Q8H-IV CONCEPCION Administration CEFTRIAXONE 1 G/50 ML PREMIX 50 mls @ 100 mls/hr 05/21/17 10:00 05/21/17 11: 12 Ceftriaxone 1 Gm-D5w Bag IVPB 100 mls/hr DAILY CONCEPCION Administration Dextrose/Sodium Chloride 1,000 mls @ 75 mls/hr 05/21/17 11:00 D5-1/2ns - IV ASDIR CONCEPCION Morphine Sulfate 2 mg 05/20/17 15:50 05/20/17 23:38 Morphine Injection - IVPUSH 2 mg Q4H PRN Administration PAIN LEVEL 6-10 Ondansetron HCl 6 mg 05/20/17 18:58 Zofran Injection IVPB Q6H PRN NAUSEA Pantoprazole Sodium 40 mg 05/19/17 10:00 05/21/17 11:11 Protonix Iv IVPUSH 40 mg DAILY CONCEPCION Administration CBC, BMP 05/21/17 06:00 05/21/17 06:00 ASSESSMENT/PLAN: This is a 41 year old female with no known medical history,presents with 2 day history of mid epigastric abdominal pain, melena, and hemoglobin of 6.5; admitted for further evaluation # Acute cholecystitis and choledocholithiasis , * S/P ERCP//sphincterotomy and stent placement: which found 2 big gall stones , could not be removed, was pushed proximally and stent was placd in CBD.follow up in 3 months for stent removal. * Advance diet to clear liquid and then NPO after mid night for surgery tomorrow * Continue Abx Ceftriaxone and flagyl day 2 * Pain control with morphine 2 mg IVpush Q 4hr PRN * elective surgery for cholecystectomy on Thursday * pt is low risk for intermediate risk non urgent procedure : does nothave any cardiac disease , no HTN , NO ACS , pt is functioning well. * Monitor liver function test. * protonix 40 mg po daily * hep panel negative (hep A previous vaccinated ) # Microcytic anemia due to Low oral intake vs GI bleed ruled out vs fibroid bleed * Iron def anemia (Fe 7 L, TIBC 450, Iron sat 2L, ferritin 2.8 ) * H/H 8.2/27.9 S/P 2 units of PRBCS, monitor * transfuse if drop below 7 * ObGyn consult Dr Haley started her on phytonadion 5 mg po once * GI consulted : EGD negative for GI bleed. #FEN: * Fluids:NS 75 mls hr * Electrolytes:wnl * Diet: advanced to liquid diet , NPO after mid night. # proph * VTE: scds, no chemoprophylaxis * GI : protonix 40 mg po daily #Disposition: admit to med surg * surgery cholectomy tomorrow. Visit type - Emergency Visit Emergency Visit: Yes ED Registration Date: 05/19/17 Care time: The patient presented to the Emergency Department on the above date and was hospitalized for further evaluation of their emergent condition. - New Patient This patient is new to me today: No - Critical Care Critical Care patient: No
--- NOTE | 2017-05-21 12:47 | CON.OBG ---
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 History of Present Illness: Legal Practice Manager hiistory pt is not aware if she had fibroids before . She is surprised to know she has large fibroids she states she had seen cloud developer about 2 yrs ago , exam was normal menarche 12 yrs MH 28- 30 days cycle x 4-5 days , states first 2 days bleeding heavy with clots sometimes, not always she changes 3 pads in a day , mild cramps Contraception none Sexually active Denies h/o STD no c/o urine symptoms - History Source History Provided By: Patient - Past Medical History DATABASE ADMIN: No: CVA, Seizure Cardio/Vascular: No: HTN, Murmur Gastrointestinal: Yes: Gastritis Hepatobiliary: Yes: Cholelithiasis Renal/: Yes: Other (declines urine symptoms ) Reproductive: Yes: Fibroids (diagnosed in curent admission . large ). No: Ectopic , Endometriosis, Polycystic Ovary Syndrome ...LMP: 04/30/17 ...: No ...: 3 ...Para: 3 (3 1996,( [place]), 1998, 2006( [facility]) ) Heme/Onc: Yes: Anemia Infectious Disease: Yes: Other (denies ). No: STD's Psych: No: Addictions, Anxiety, Bipolar, Depression, Panic, Psychosis, Schizophrenia - Past Surgical History Past Surgical History: Yes: Hernia Repair (umbilical hernia repair 2014 at [facility] ) - Alcohol/Substance Use Hx Alcohol Use: No History of Substance Use: reports: None - Smoking History Smoking history: Never smoked Have you smoked in the past 12 months: No - Social History Usual Living Arrangement: With Spouse ADL: Independent Occupation: Unemployed History of Recent Travel: No Home Medications - Allergies Allergies/Adverse Reactions: Allergies Allergy/AdvReac Type Severity Reaction Status Date / Time No Known Allergies Allergy Verified 06/13/15 19:16 - Home Medications Home Medications: Ambulatory Orders NK [No Known Home Medication] 06/13/15 NK [No Known Home Medication] 05/19/17 Family Disease History - Family Disease History Family Disease History: Other: Father (alive: healthy), Mother (: 55: asthma ), Brother (2, healthy), Sister (3, healthy), Son (1 healthy), Daughter (2, 1 with raynaud's) Other Family History: No family history of colorectal cancer or other GI malignancy 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 Vital Signs: Vital Signs Temperature 98.4 F 05/21/17 06:00 Pulse Rate 66 05/21/17 06:00 Respiratory Rate 18 05/21/17 06:00 Blood Pressure 126/65 05/21/17 06:00 O2 Sat by Pulse Oximetry (%) 97 05/20/17 20:30 Selected Entries 05/19/17 11:44 Weight 182 lb 15.739 oz Constitutional: Yes: Well Nourished, Obese Eyes: Yes: Sclera Icterus HENT: Yes: WNL Gastrointestinal: Yes: Abdomen, Obese, Palpable Mass (lower abdome n arising from pelvis above umblicus), Tenderness, Epigastrium ...Rectal Exam: Yes: Deferred Renal/: No: CVA Tenderness - Left, CVA Tenderness - Right Pelvis: Yes: Mass (pelvic abdominal mass 22 weeks size), Tenderness (right side) External Genitalia: Yes: Normal Internal Exam Deferred: Yes Vaginal Exam: Yes: Normal. No: Bleeding Cervix: Yes: Normal. No: Bleeding, Cerv Motion Tenderness Uterus: Yes: Enlarged, Mass (uterine mass unable to seprate from uterus, 22 weeks size) Adnexa: Normal: Bilateral (unable to evaluate due to enlarge uterus, not tender ) Breast(s): Yes: WNL. No: Mass Musculoskeletal: Yes: WNL Extremities: Yes: WNL. No: Calf Tenderness Edema: No Integumentary: Yes: Incision (umblical incision) Neurological: Yes: WNL ...Motor Strength: WNL Psychiatric: Yes: WNL Labs: CBC, BMP 05/21/17 06:00 05/21/17 06:00 Laboratory Tests 05/19/17 05/19/17 05/19/17 01:30 01:30 11:12 WBC 5.9 Hgb 6.5 L* Hct 23.8 L MCV 52.6 L MCH 14.4 L MCHC 27.4 L Plt Count 523 H Total Bilirubin 1.8 H 2.4 H D AST 299 H 276 H ALT 356 H 369 H Alkaline Phosphatase 273 H 265 H Hep A IgM Ab Confirm Hepatitis A Ab Total Hep Bs Antigen Hep Bs Antibody Hep B Core Total Ab Hepatitis C Antibody 05/19/17 05/20/17 05/21/17 11:46 06:00 06:00 WBC Hgb Hct MCV MCH MCHC Plt Count Total Bilirubin 4.9 H D 2.6 H D AST 178 H 117 H ALT 324 H 257 H Alkaline Phosphatase 260 H 247 H Hep A IgM Ab Confirm Negative Hepatitis A Ab Total Positive H Hep Bs Antigen Negative Hep Bs Antibody Non reactive Hep B Core Total Ab Negative Hepatitis C Antibody 0.2 Problem List - Problems (1) Fibroid uterus Code(s): D25.9 - LEIOMYOMA OF UTERUS, UNSPECIFIED Qualifiers: Uterine leiomyoma location: intramural and subserous Qualified Code(s): D25.1 - Intramural leiomyoma of uterus; D25.2 - Subserosal leiomyoma of uterus; D25.2 - Subserosal leiomyoma of uterus (2) Menorrhagia Code(s): N92.0 - EXCESSIVE AND FREQUENT MENSTRUATION WITH REGULAR CYCLE Qualifiers: Menorrahagia type: with regular cycle Qualified Code(s): N92.0 - Excessive and frequent menstruation with regular cycle (3) Abdominal pain Code(s): R10.9 - UNSPECIFIED ABDOMINAL PAIN (4) Abnormal liver enzymes Code(s): R74.8 - ABNORMAL LEVELS OF OTHER SERUM ENZYMES (5) Anemia Code(s): D64.9 - ANEMIA, UNSPECIFIED Qualifiers: Anemia type: other cause Other causes of anemia: other cause, not classified Qualified Code(s): D64.89 - Other specified anemias Assessment/Plan 41 yrs , obese , admitted for abd pain, diagnosed elevated liver enz & hyperbilirubinemia ct scan shhows ut large 17x13.7x10,7cm enlrge uterus , heterogenous mass intramural fibroid mainly in fundal area noted, with bilatera mild hydronphrosis & hydroureter due to obstruction in lower ureter . pt is presently being treated with IV ceftriaxione, metranidazole, Protonix She received 2 pack cell transfusion, s/p ERCP, sphicterectomy & stent placement, liver enz, bilirubin decreasing. pt is scheduled for Lap choly on 05/22/17 Legal Practice Manager Plan. let patient be treated for current choledocholelthiasis & cholecystitis, liver enz & bilirubin normalise refer the patient to [address] [place] [address] for drip pumper work up pap smear & Em Bx before surgical treatment of Abdomnal Hysterectomy total or subtotal cam be considered . I explained to the patient , in view of very large uterus , i do not recommend abd myomectomy ., since she has no plnas to have more children Anemia to be treated by iron & vitmins
--- NOTE | 2017-05-21 13:36 | SPA.PREOP ---
- PRE-OP NOTE Dx: Choledocholithiasis, cholelithiasis Planned Procedure: Laparoscopic Cholecystectomy Surgeon: Tomas Sheridan Consent: Obtained after surgeon explained all risks, benefits and alternatives. Opportunity for questions. Patient had none. Understood and signed without reservation. Last Vital Signs Temp Pulse Resp BP Pulse Ox 98.4 F 66 18 126/65 97 05/21/17 06:00 05/21/17 06:00 05/21/17 06:00 05/21/17 06:00 05/20/17 20:30 Lab Results WBC 6.0 K/mm3 (4.0-10.0) 05/21/17 06:00 RBC 4.81 M/mm3 (3.60-5.2) 05/21/17 06:00 Hgb 8.2 GM/dL (10.7-15.3) L 05/21/17 06:00 Hct 27.9 % (32.4-45.2) L 05/21/17 06:00 MCV 58.0 fl (80-96) L 05/21/17 06:00 MCHC 29.4 g/dl (32.0-36.0) L 05/21/17 06:00 RDW 27.3 % (11.6-15.6) H 05/21/17 06:00 Plt Count 419 K/MM3 (134-434) 05/21/17 06:00 Sodium 141 mmol/L (136-145) 05/21/17 06:00 Potassium 3.7 mmol/L (3.5-5.1) 05/21/17 06:00 Chloride 109 mmol/L (98-107) H 05/21/17 06:00 Carbon Dioxide 26 mmol/L (21-32) 05/21/17 06:00 Anion Gap 6 (8-16) L 05/21/17 06:00 BUN 5 mg/dL (7-18) L 05/21/17 06:00 Creatinine 0.6 mg/dL (0.55-1.02) 05/21/17 06:00 Random Glucose 80 mg/dL (74-106) 05/21/17 06:00 Calcium 8.1 mg/dL (8.5-10.1) L 05/21/17 06:00 Blood Type O POSITIVE 05/19/17 08:10 Antibody Screen Negative 05/19/17 04:10 INR 1.11 (0.82-1.09) 05/19/17 11:46 - ASSESSMENT/PLAN 1. Make NPO after midnight except po meds 2. GI/DVT PPX 3. Medical optimization / clearance Visit type - Case Type Case Type: ED Admission - Emergency Emergency Visit: Yes ED Registration Date: 05/19/17 Care time: The patient presented to the Emergency Department on the above date and was hospitalized for further evaluation of their emergent condition. - New patient This patient is new to me today: Yes Date on this admission: 05/21/17
--- NOTE | 2017-05-21 13:45 | PN ---
Teaching Attending Note Name of Resident: Kj Min ATTENDING PHYSICIAN STATEMENT I saw and evaluated the patient. I reviewed the resident's note and discussed the case with the resident. I agree with the resident's findings and plan as documented. SUBJECTIVE: No fever or chills, feels much better today, no N/V, no abd pain OBJECTIVE: NAD, icteric sclera, less jaundiced skin CV; RRR, 2/6 Sm at LUSB . no radiation to carotids Lungs: CTAB Ext: no edema Abd: soft, ND, no TTP. no rebound tenderness or guarding. Nl BS . uterus is felt in abd up to umbilicus ASSESSMENT AND PLAN: 41 y/o lady with no significant PMH who presented with abd pain , and was found to have acute cholecystitis and choledocolithiasis 1- Acute cholecystitis and choledocolithiasis: s/p ERCP this am , with 2 choledocolithiasis , pushed proximally and a stent placed. no signs of post ERCP pancreatitis - cont IVF - Cont pain meds - full liquid now then NPO after mid night - cont ceftriaxone and flagyl - for CCY tomorrow - need f/u in 3 months for stent and stone removal - start actigall - pre-op risk stratification: this a non urgent intermediate risk procedure. The pt herself is healthy, has no signs of ACS, arrhythmias, CHF, or any h/o CAD , CHF or arrhythmias . her functional status meets 4-10 METs. the 2/6 [place] , has no radiation to neck and does not indicate ( likely due to anemia). all that puts her at low risk for juan-op cardiac complications for this intermediate risk procedure . No indication for further cardiac w/u 2- Iron def anemia : EGD with no source of bleed . has uterine fibroids, with heavy menses. has 3 children and plans on no further pregnancies. -advised for hysterectomy due to anemia and some degree of hydro -hysterectomy can be done as out pt - GEOLOGY ASSOCIATE consult pending 3-DVT Px: SCds . no heparin products
--- NOTE | 2017-05-21 17:29 | PN ---
GI Progress Note Subjective: No acute events S/P ERCP No abdominal pain - Objective Vital Signs: Vital Signs Temperature 98.2 F 05/21/17 17:15 Pulse Rate 63 05/21/17 17:15 Respiratory Rate 18 05/21/17 17:15 Blood Pressure 103/65 05/21/17 17:15 O2 Sat by Pulse Oximetry (%) 97 05/20/17 20:30 Constitutional: Calm Eyes: No: Sclera Icterus Cardiovascular: Yes: Regular Rate and Rhythm Respiratory: Yes: CTA Bilaterally Gastrointestinal Inspection: No: Distention ...Auscultate: Yes: Normoactive Bowel Sounds Edema: No (No LE edema) Neurological: Yes: Alert, Oriented Labs: CBC, BMP 05/21/17 06:00 05/21/17 06:00 INR, PTT INR 1.11 (0.82-1.09) 05/19/17 11:46 Hepatic Panel Total Bilirubin 2.6 mg/dL (0.2-1.0) H D 05/21/17 06:00 Direct Bilirubin 1.5 mg/dL (0.0-0.2) H 05/21/17 06:00 AST 117 U/L (15-37) H 05/21/17 06:00 ALT 257 U/L (12-78) H 05/21/17 06:00 Alkaline Phosphatase 247 U/L (45-117) H 05/21/17 06:00 Albumin 2.9 g/dl (3.4-5.0) L 05/21/17 06:00 Problem List - Problems (1) Low hemoglobin Assessment/Plan: 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
[2017-05-21] MEDS: URSODIOL 300 MG CAPSULE PO SCH (21:24)
--- NOTE | 2017-05-22 05:39 | PN ---
Physical Exam: SUBJECTIVE: Patient seen and examined at bedside. npo since mid night, lab cholecystectomy today. little lower abdominal pain, local non radiating. OBJECTIVE: Vital Signs Period Temp Pulse Resp BP Sys/Santiago Pulse Ox Last 24 Hr 98.1 F-98.4 F 58-70 18-20 103-129/49-67 96-97 GENERAL: AAOx3 in NAD HEAD: NC/AT EYES: EOMI, Conjunctiva clear, sclera icteric ENT: moist mucous membrane NECK: Supple, no JVD LUNGS: CTA B/L, no crackles no wheezing no accessory muscle use. HEART: RRR, NSR, normal s1, s2, 2/6 systolic murmur LUSB, no /R/G ABDOMEN: Soft, ND, NT, +BS 4 Q, no CVA Tenderness LOWER EXTREMITIES: no edema, +2DP pulse, NEUROLOGICAL: No focal deficit. Normal speech. gait not observed. PSYCHIATRIC: Cooperative. Good eye contact. Appropriate mood and affect. SKIN: Warm, dry, Laboratory Results - last 24 hr 05/21/17 05/21/17 05/21/17 06:00 06:00 06:00 WBC 6.0 RBC 4.81 Hgb 8.2 L Hct 27.9 L MCV 58.0 L MCH 17.0 L MCHC 29.4 L RDW 27.3 H Plt Count 419 MPV 8.5 Neutrophils % 67.8 D Lymphocytes % 19.2 D Monocytes % 10.7 H Eosinophils % 1.5 Basophils % 0.8 Sodium 141 Potassium 3.7 Chloride 109 H Carbon Dioxide 26 Anion Gap 6 L BUN 5 L Creatinine 0.6 Creat Clearance w eGFR > 60 Random Glucose 80 Calcium 8.1 L Total Bilirubin 2.6 H D Direct Bilirubin 1.5 H AST 117 H ALT 257 H Alkaline Phosphatase 247 H C-Reactive Protein 0.3 Total Protein 6.1 L Albumin 2.9 L Total Amylase 14 L Lipase 44 L Active Medications Generic Name Dose Route Start Last Admin Trade Name Freq PRN Reason Stop Dose Admin Metronidazole 500 mg in 100 mls @ 100 mls/hr 05/20/17 02:00 05/22/17 01:49 Flagyl 500mg Premixed Ivpb - IVPB 100 mls/hr Q8H-IV CONCEPCION Administration CEFTRIAXONE 1 G/50 ML PREMIX 50 mls @ 100 mls/hr 05/21/17 10:00 05/21/17 11: 12 Ceftriaxone 1 Gm-D5w Bag IVPB 100 mls/hr DAILY CONCEPCION Administration Dextrose/Sodium Chloride 1,000 mls @ 75 mls/hr 05/21/17 11:00 05/21/17 12:42 D5-1/2ns - IV 75 mls/hr ASDIR CONCEPCION Administration Morphine Sulfate 2 mg 05/20/17 15:50 05/20/17 23:38 Morphine Injection - IVPUSH 2 mg Q4H PRN Administration PAIN LEVEL 6-10 Ondansetron HCl 6 mg 05/20/17 18:58 Zofran Injection IVPB Q6H PRN NAUSEA Ursodiol 300 mg 05/21/17 22:00 05/21/17 21:24 Actigal - PO 300 mg BID CONCEPCION Administration CBC, BMP 05/22/17 06:20 05/22/17 06:20 ASSESSMENT/PLAN: This is a 41 year old female with no known medical history,presents with 2 day history of mid epigastric abdominal pain, melena, and hemoglobin of 6.5; admitted for further evaluation # Acute cholecystitis and choledocholithiasis , * S/P lab dalia POD#1 * S/P ERCP/sphincterotomy and stent placement: which found 2 big gall stones , could not be removed, was pushed proximally and stent was placd in CBD.follow up in 3 months for stent removal. * Advance diet to regular * Complete course of Abx Ceftriaxone and flagyl day 2 * Pain control per surgery * zofran for nausea * start her on ursodiol 300 mg po bid # Microcytic anemia due to Low oral intake vs GI bleed ruled out vs fibroid bleed * Iron def anemia (Fe 7 L, TIBC 450, Iron sat 2L, ferritin 2.8 ) * H/H stable S/P 2 units of PRBCS, monitor * transfuse if drop below 7 * ObGyn consult Dr Haley started her on phytonadion 5 mg po once ,F/U as out pt for possibel hysterectomy as she does not want more kids. * GI consulted : EGD negative for GI bleed. #FEN: * Fluids:D5w / 1/2 NS 75 mls hr * Electrolytes:wnl * Diet: advanced to regular diet # proph * VTE: scds, hep sq TID * GI : protonix 40 mg po daily #Disposition: admit to med surg * surgery cholecystectomy today Visit type - Emergency Visit Emergency Visit: Yes ED Registration Date: 05/19/17 Care time: The patient presented to the Emergency Department on the above date and was hospitalized for further evaluation of their emergent condition. - New Patient This patient is new to me today: No - Critical Care Critical Care patient: No
[2017-05-22] MEDS ORDERED: PROPOFOL 20 ML ONE ×2 (07:41)
[2017-05-22] MEDS ORDERED: MIDAZOLAM HCL 2 MG/2 ML SINGLE DOSE VIAL ONE (07:41)
[2017-05-22] MEDS ORDERED: ROCURONIUM BROMIDE 50 MG/5 ML VIAL ONE ×2 (07:41→08:47)
[2017-05-22] MEDS ORDERED: LIDOCAINE HCL/PF 2% SDV 5ML VIAL ONE (07:41)
[2017-05-22 07:46] LABS: ALBUMIN 3.1 g/dl (3.4-5.0); ANION GAP 7 (8-16); BLOOD UREA NITROGEN 4 mg/dL (7-18); CHLORIDE 106 mmol/L (98-107); CO2 27 mmol/L (21-32); GLUCOSE,RANDOM 94 mg/dL (74-106); POTASSIUM 3.8 mmol/L (3.5-5.1); SGOT/AST 105 U/L (15-37); SGPT/ALT 249 U/L (12-78); SODIUM 140 mmol/L (136-145)
[2017-05-22] MEDS ORDERED: BUPIVACAINE HCL/PF 0.5% (5MG/ML) 10 ML VIAL ONE (07:46)
[2017-05-22 07:48] LABS: ALK PHOS 249 U/L (45-117); BILIRUBIN,TOTAL 1.4 mg/dL (0.2-1.0); CREATININE 0.5 mg/dL (0.55-1.02); TOT PROT 6.8 g/dl (6.4-8.2)
[2017-05-22 08:06] LABS: HEMATOCRIT 31.5 % (32.4-45.2); MCHC 28.6 g/dl (32.0-36.0); MEAN CELL VOLUME 59.2 fl (80-96); MEAN PLT VOLUME 8.8 fl (7.5-11.1); PLATELET COUNT 460 K/MM3 (134-434); RBC 5.33 M/mm3 (3.60-5.2); RDW 27.7 % (11.6-15.6); WHITE BLOOD COUNT 5.1 K/mm3 (4.0-10.0)
[2017-05-22 08:22] LABS: MCH 16.9 pg (25.7-33.7)
[2017-05-22] MEDS ORDERED: BUPIVACAINE HCL/PF 0.5% (5MG/ML) 10 ML VIAL IJ ONE ×2 (08:41→09:39)
[2017-05-22] MEDS ORDERED: DEXAMETHASONE SOD PHOSPHATE 4 MG/1 ML VIAL ONE (08:45)
[2017-05-22] MEDS ORDERED: IBUPROFEN 800 MG/8 ML IJ IVPB PRN ×2 (08:55→10:04)
[2017-05-22] MEDS ORDERED: HYDROmorphone HCL CARPU-JECT 1 MG/1 ML DISP.SYRIN IVPUSH PRN ×2 (08:55→10:04)
[2017-05-22] MEDS ORDERED: SODIUM CHLORIDE 1,000 ML IV SCH ×2 (09:00→10:04)
[2017-05-22] MEDS ORDERED: NEOSTIGMINE METHYLSULFATE 0.5 MG/ML - 10 ML MDV ONE (09:31)
[2017-05-22] MEDS ORDERED: GLYCOPYRROLATE 0.2 MG/1 ML VIAL ONE (09:31)
--- NOTE | 2017-05-22 10:00 | OP ---
Operative Note - Note: Operative Date: 05/22/17 Pre-Operative Diagnosis: Acute cholecystitis, choledocholithiasis (s/p ERCP and cbd stent) Operation: Lap Cholecystectomy Findings: Very dilated cystic duct. Used EndoGIA (45 blue) stapler across the cystic duct Post-Operative Diagnosis: Same as Pre-op Surgeon: Tomas Sheridan Supervisor Buffing And Pasting: Tony Perry Anesthesiologist/BELLY ROLLER: Lu Ravi Anesthesia: General Specimens Removed: gall bladder Estimated Blood Loss (mls): 25 Fluid Volume Replaced (mls): 1,000 Operative Report Dictated: Yes
--- NOTE | 2017-05-22 10:01 | SURG ---
Surgery Account Development Representative Note Account Development Representative: Tony Perry PA-C Date of Service: 05/22/17 Diagnosis: Acute cholecystitis, choledocholithiasis (s/p ERCP and cbd stent) Procedure: Laparoscopic cholecystectomy I was present for the entirety of the operative procedure. For further detail, please refer to operative report. Visit type - Case Type Case Type: ED Admission
[2017-05-22] MEDS: DEXTROSE 5%-0.45% SALINE 1,000 ML IV SCH (10:04)
[2017-05-22] MEDS ORDERED: ONDANSETRON 4 MG/2 ML VIAL IVPB PRN (10:04)
[2017-05-22] MEDS ORDERED: IBUPROFEN 800 MG/8 ML IJ IVPB ONE (10:32)
[2017-05-22] MEDS: URSODIOL 300 MG CAPSULE PO SCH ×2 (12:54→21:13)
[2017-05-22] MEDS: CEFTRIAXONE 1 G/50 ML PREMIX 50 ML IVPB SCH (12:54)
[2017-05-22] MEDS: MORPHINE SULFATE 10 MG/1 ML *VIAL IVPUSH PRN ×2 (12:59→20:10)
--- NOTE | 2017-05-22 18:41 | PN ---
Teaching Attending Note Name of Resident: Kj Min ATTENDING PHYSICIAN STATEMENT I saw and evaluated the patient. I reviewed the resident's note and discussed the case with the resident. I agree with the resident's findings and plan as documented. SUBJECTIVE: seen right after CCy No fever or chills . abd pain in RUQ. OBJECTIVE: NAD, slightly icteric sclera, less jaundiced skin CV; RRR, 2/6 SM at LUSB . no radiation to carotids Lungs: CTAB Ext: no edema Abd: soft, ND, TTP in RUQ. no rebound tenderness or guarding. Nl BS . uterus is felt in abd up to umbilicus . tape over sugical laparoscopic wounds ASSESSMENT AND PLAN: 41 y/o lady with no significant PMH who presented with abd pain , and was found to have acute cholecystitis and choledocolithiasis 1- Acute cholecystitis and choledocolithiasis: s/p ERCP , with 2 choledocolithiasis , pushed proximally and a stent placed. s/p CCY 05/22 wiht no perforation or abscess formation - cont IVF - Abx - regular diet - will stop IVF tomorrow - cont Actigall 2- Iron def anemia: EGD with no source of bleed . has uterine fibroids, with heavy menses. need hysterectomy as out pt seen by SENIOR HRIS ANALYST. appreciate Recs Further GI w/u like colo as out pt 3-DVT Px: SCds. no heparin products
[2017-05-23 08:22] LABS: CHLORIDE 104 mmol/L (98-107); POTASSIUM 3.4 mmol/L (3.5-5.1); SODIUM 140 mmol/L (136-145)
[2017-05-23 08:28] LABS: ALBUMIN 2.7 g/dl (3.4-5.0); ALK PHOS 196 U/L (45-117); ANION GAP 12 (8-16); BILIRUBIN,DIRECT 0.5 mg/dL (0.0-0.2); BILIRUBIN,TOTAL 1.1 mg/dL (0.2-1.0); BLOOD UREA NITROGEN 6 mg/dL (7-18); CALCIUM 8.3 mg/dL (8.5-10.1); CO2 24 mmol/L (21-32); CREATININE 0.4 mg/dL (0.55-1.02); GLUCOSE,RANDOM 101 mg/dL (74-106); PHOSPHOROUS 4.1 mg/dL (2.5-4.9); SGOT/AST 68 U/L (15-37); SGPT/ALT 188 U/L (12-78); TOT PROT 6.2 g/dl (6.4-8.2)
[2017-05-23] MEDS ORDERED: NAPH,MB-DB/K PH,MBDB POWDER PACKET PO ONE (08:37)
--- NOTE | 2017-05-23 08:45 | PN ---
Progress Note (short form) - Note Progress Note: Ms. Ceballos will need repeat ercp in 2-3 months for stent removal and stone extraction. continue actigal in interim. can f/u w/ dr. rees regarding this. will need continued w/u of anemia as well. Problem List - Problems (1) Low hemoglobin Code(s): D64.9 - ANEMIA, UNSPECIFIED (2) Abnormal liver enzymes Code(s): R74.8 - ABNORMAL LEVELS OF OTHER SERUM ENZYMES (3) Anemia Code(s): D64.9 - ANEMIA, UNSPECIFIED Qualifiers: Anemia type: iron deficiency
[2017-05-23 08:52] LABS: BASO % 0.7 % (0-2.0); EOS % 1.7 % (0-4.5); HEMATOCRIT 28.3 % (32.4-45.2); LYMPH % 20.6 % (8-40); MCHC 28.1 g/dl (32.0-36.0); MEAN CELL VOLUME 59.4 fl (80-96); MEAN PLT VOLUME 8.7 fl (7.5-11.1); MONO % 12.3 % (3.8-10.2); NEUT % 64.7 % (42.8-82.8); PLATELET COUNT 399 K/MM3 (134-434); RBC 4.77 M/mm3 (3.60-5.2); RDW 29.4 % (11.6-15.6); WHITE BLOOD COUNT 8.6 K/mm3 (4.0-10.0)
[2017-05-23 08:54] LABS: MCH 16.7 pg (25.7-33.7)
--- NOTE | 2017-05-23 09:18 | PN ---
Teaching Attending Note Name of Resident: Melissa Vazquez ATTENDING PHYSICIAN STATEMENT I saw and evaluated the patient. I reviewed the resident's note and discussed the case with the resident. I agree with the resident's findings and plan as documented. SUBJECTIVE: No fever or chills . has abd distention and pain. No N/V, passed gas but no BM. OBJECTIVE: NAD, slightly icteric sclera, less jaundiced skin CV; RRR, 2/6 SM at LUSB . no radiation to carotids Lungs: CTAB Ext: no edema Abd: soft, distended in upper part. tympanic above umbilicus , TTP in RUQ and epigastric area . . tape over sugical laparoscopic wounds ASSESSMENT AND PLAN: 41 y/o lady with no significant PMH who presented with abd pain , and was found to have acute cholecystitis and choledocolithiasis 1- Acute cholecystitis and choledocolithiasis: s/p ERCP, with 2 choledocolithiasis , pushed proximally and a stent placed. s/p CCY 05/22 with no perforation or abscess formation - tolerating her diet. will dc IVF - abx were stopped by surgical team yesterday. due to her cholecystits and stent placement, with CBD stones still present and manipulated, will finish a 7 day course of abx. start Augmentin ( receved 3 days of Abx, will give 4 more days including today ) - regular diet - cont Actigall - Abd is distended in upper abd today. will check Abd xry flat and upright to r/ o ileus/SBO - advised ambulation 2- Iron def anemia: due to vaginal bleed ( large fibroids) , EGD with no source of bleed . f/u with RESIDENT ENGINEER for hysterectomy - f/u with gi for colonoscopy 3-DVT Px: SCds. no heparin products
[2017-05-23] MEDS: AMOX TR/POT CLAV 875MG/125MG TABLETS (FP) PO SCH ×2 (10:29→17:47)
[2017-05-23] MEDS: URSODIOL 300 MG CAPSULE PO SCH ×2 (10:29→21:42)
--- NOTE | 2017-05-23 10:37 | PN ---
Progress Note (short form) - Note Progress Note: Attending Surgeon POD #1 Tolerated diet and voided; cant move her bowels; passing gas; c/o lower abdominal and port site pain VSS AF abdomen- port sites c/d/i/ and w/ tenderness to palpation; tender above umbilicus w/ palpable 22 weeks size uterus; o/w negative WBC-wnl; LFT's and bili trending down; AXR's reviewed and unremarkable. IMP: doing well PLAN: Surgically stable for d/c and OPD F/U. Tomas Sheridan MD FACS
[2017-05-23] MEDS ORDERED: BISACODYL 10 MG SUPP.RECT RC ONE (11:41)
[2017-05-23] MEDS ORDERED: GLYCERIN 1 RECTAL SUPPOSITORY, ADULT PR ONE (11:44)
[2017-05-23] MEDS: DEXTROSE 5%-0.45% SALINE 1,000 ML IV SCH (11:50)
[2017-05-23] MEDS: MAGNESIUM HYDROX 2400MG/30ML ORAL SUSPENSION 30 ML CUP PO PRN (11:58)
--- NOTE | 2017-05-23 13:59 | PN ---
GI Progress Note Subjective: GI NOte: ( covering Dr Gunter) Having postoperative bloating discomfort. Unable to belch or pass flatus. No vomiting. Unable to eat - Objective Vital Signs: Vital Signs Temperature 98.1 F 05/23/17 06:00 Pulse Rate 57 L 05/23/17 06:00 Respiratory Rate 20 05/23/17 06:00 Blood Pressure 116/58 05/23/17 06:00 O2 Sat by Pulse Oximetry (%) 96 05/22/17 21:00 Laboratory Tests 05/23/17 05/23/17 07:00 07:00 WBC 8.6 D Hgb 8.0 L D Total Bilirubin 1.1 H D Direct Bilirubin 0.5 H AST 68 H ALT 188 H Alkaline Phosphatase 196 H Gastrointestinal Inspection: Yes: Distention ...Auscultate: Yes: Hypoactive Bowel Sounds ...Palpate: Yes: Tenderness (at incision sites) Labs: CBC, BMP 05/23/17 07:00 05/23/17 07:00 INR, PTT INR 1.11 (0.82-1.09) 05/19/17 11:46 Assessment/Plan Postop ileus and not yet able to eat Agree with need to keep in hospital Encouraged to ambulate I gave her my phone number and address to set up followup to remove stent and stones
--- NOTE | 2017-05-23 14:41 | PN ---
Physical Exam: SUBJECTIVE: Patient seen and examined. Her daughter was present at bedside that translated our conversation. The pt is complaining of abdominal pain that started last night. She started passing gas but no BM yet. OBJECTIVE: Vital Signs Period Temp Pulse Resp BP Sys/Santiago Pulse Ox Last 24 Hr 98.1 F-98.5 F 52-59 20-20 100-116/52-59 96 GENERAL: The patient is awake, alert, and fully oriented, in no acute distress. HEAD: Normal with no signs of trauma. EYES: extraocular movements intact, sclera anicteric, conjunctiva clear. ENT: oropharynx clear without exudates, moist mucous membranes. NECK: Trachea midline, full range of motion, supple. LUNGS: Breath sounds equal, clear to auscultation bilaterally, no wheezes, no crackles, no accessory muscle use. HEART: Regular rate and rhythm, S1, S2, 2/5 murmur over left sternal border, no rub or gallop. ABDOMEN: Soft, tender in epigastric area, distended, hypooactive bowel sounds, no guarding, no rebound. EXTREMITIES: 2+ pulses, warm, no edema. NEUROLOGICAL: Normal speech, no facial asymmetry, motor 5/5, gait not observed. PSYCH: Normal mood, normal affect. SKIN: Warm, dry, normal turgor, no rashes, small 4 incisions post laparoscopic surgery, dressings applied, no erythema, drainage. Laboratory Results - last 24 hr 05/19/17 05/23/17 05/23/17 04:10 07:00 07:00 WBC 8.6 D RBC 4.77 Hgb 8.0 L D Hct 28.3 L MCV 59.4 L MCH 16.7 L MCHC 28.1 L RDW 29.4 H Plt Count 399 MPV 8.7 Neutrophils % 64.7 Lymphocytes % 20.6 Monocytes % 12.3 H Eosinophils % 1.7 Basophils % 0.7 Sodium 140 Potassium 3.4 L Chloride 104 Carbon Dioxide 24 Anion Gap 12 BUN 6 L Creatinine 0.4 L Creat Clearance w eGFR > 60 Random Glucose 101 Calcium 8.3 L Phosphorus 4.1 Magnesium 2.0 Total Bilirubin 1.1 H D Direct Bilirubin 0.5 H AST 68 H ALT 188 H Alkaline Phosphatase 196 H Total Protein 6.2 L Albumin 2.7 L Blood Type O POSITIVE Antibody Screen Negative Crossmatch See Detail Active Medications Generic Name Dose Route Start Last Admin Trade Name Freq PRN Reason Stop Dose Admin Amoxicillin/Clavulanate Potassium 1 tab 05/23/17 09:10 05/23/17 10:29 Augmentin - 875mg Tablet PO 1 tab BID@0800,1730 CONCEPCION Administration Magnesium Hydroxide 30 ml 05/23/17 10:40 05/23/17 11:58 Milk Of Magnesia - PO 30 ml PRN PRN Administration CONSTIPATION Ondansetron HCl 6 mg 05/22/17 10:04 Zofran Injection IVPB Q6H PRN NAUSEA Ursodiol 300 mg 05/22/17 22:00 05/23/17 10:29 Actigal - PO 300 mg BID CONCEPCION Administration ASSESSMENT/PLAN: This is a 41 year old female with no known medical history, presents with abdominal pain, melena, and hemoglobin of 6.5; admitted for further evaluation. Acute cholecystitis and choledocholithiasis , S/P lab dalia POD#2 and s/p ERCP/sphincterectomy with stent placement: f/u surgery and GI recommendations. The pt is passing gas but her abdomen is tender and distended. X ray of her abdomen was ordered and revealed distention that can indicated obstructive process. She was advised to walk, suppository and Milk of magnesia were also given. We ordered x ray for tomorrow at 8 AM. The pt is also on Augumentin for total of 7 days, today day 3. Continue Zofran, pain control. Diet was advanced to regilar. Continue Ursodiol. Microcytic anemia possibly due to bleeding from fibroids Hgb 8.0 from 9.0 yesterday, S/P 2 units of PRBCS, monitor, no need for transfusion now ObGyn consulted, will as outpatient for hysterectomy GI consulted for GI source that was excluded. EGD:normal finding with the exception to sliding hiatal hernia Hypokalemia: K 3.4, repleated FEN: D5w / 1/2 NS 75 mls hr/no changes/regular DVT PPX: VTE: scds, hep sq TID GI PPX; protonix 40 mg po daily Disposition: med surg, discharge tomorrow when improved clinically Problem List - Problems (1) Abdominal pain Code(s): R10.9 - UNSPECIFIED ABDOMINAL PAIN (2) Abnormal liver enzymes Code(s): R74.8 - ABNORMAL LEVELS OF OTHER SERUM ENZYMES (3) Anemia Code(s): D64.9 - ANEMIA, UNSPECIFIED Qualifiers: Anemia type: iron deficiency (4) Low hemoglobin Code(s): D64.9 - ANEMIA, UNSPECIFIED (5) Pain Code(s): R52 - PAIN, UNSPECIFIED (6) Fibroid uterus Code(s): D25.9 - LEIOMYOMA OF UTERUS, UNSPECIFIED Qualifiers: Uterine leiomyoma location: intramural and subserous Qualified Code(s): D25.1 - Intramural leiomyoma of uterus; D25.2 - Subserosal leiomyoma of uterus; D25.2 - Subserosal leiomyoma of uterus (7) Anemia Code(s): D64.9 - ANEMIA, UNSPECIFIED Qualifiers: Anemia type: other cause Other causes of anemia: other cause, not classified Qualified Code(s): D64.89 - Other specified anemias (8) Umbilical hernia with obstruction Code(s): K42.0 - UMBILICAL HERNIA WITH OBSTRUCTION, WITHOUT GANGRENE (9) Fibroid (bleeding) (uterine) Code(s): D25.9 - LEIOMYOMA OF UTERUS, UNSPECIFIED Qualifiers: Uterine leiomyoma location: intramural Qualified Code(s): D25.1 - Intramural leiomyoma of uterus (10) Menorrhagia Code(s): N92.0 - EXCESSIVE AND FREQUENT MENSTRUATION WITH REGULAR CYCLE Qualifiers: Menorrahagia type: with irregular cycle Qualified Code(s): N92.1 - Excessive and frequent menstruation with irregular cycle Visit type - Emergency Visit Emergency Visit: Yes ED Registration Date: 05/19/17 Care time: The patient presented to the Emergency Department on the above date and was hospitalized for further evaluation of their emergent condition. - New Patient This patient is new to me today: Yes Date on this admission: 05/23/17 - Critical Care Critical Care patient: No - Discharge Referral Referred to [facility] Med P.C.: No
--- NOTE | 2017-05-23 16:15 | PN ---
Progress Note (short form) - Note Progress Note: POD #1 - s/p laparoscopic cholecystectomy under general anesthesia. VSS. Pt. walking about room without complaints. No apparent anesthetic complications noted. Waiting to be discharged.
[2017-05-23] MEDS: POLYETHYLENE GLYCOL 3350 119 GM BTL PO SCH (21:41)
[2017-05-24 05:24] VITALS: TEMP 98.1
[2017-05-24 07:48] LABS: HEMATOCRIT 28.3 % (32.4-45.2); HEMOGLOBIN 8.2 GM/dL (10.7-15.3); MCHC 28.8 g/dl (32.0-36.0); MEAN PLT VOLUME 8.5 fl (7.5-11.1); PLATELET COUNT 400 K/MM3 (134-434); RBC 4.81 M/mm3 (3.60-5.2); RDW 29.8 % (11.6-15.6); WHITE BLOOD COUNT 8.1 K/mm3 (4.0-10.0)
[2017-05-24 08:10] LABS: ANION GAP 12 (8-16); BLOOD UREA NITROGEN 6 mg/dL (7-18); CALCIUM 8.6 mg/dL (8.5-10.1); CHLORIDE 105 mmol/L (98-107); CO2 24 mmol/L (21-32); CREATININE 0.4 mg/dL (0.55-1.02); GLUCOSE,RANDOM 84 mg/dL (74-106); POTASSIUM 3.9 mmol/L (3.5-5.1); SODIUM 141 mmol/L (136-145)
[2017-05-24 09:20] LABS: ALBUMIN 2.9 g/dl (3.4-5.0); ALK PHOS 172 U/L (45-117); BILIRUBIN,DIRECT 0.4 mg/dL (0.0-0.2); SGOT/AST 66 U/L (15-37); SGPT/ALT 159 U/L (12-78); TOT PROT 6.2 g/dl (6.4-8.2)
[2017-05-24] MEDS: POLYETHYLENE GLYCOL 3350 119 GM BTL PO SCH (10:23)
[2017-05-24] MEDS: MAGNESIUM HYDROX 2400MG/30ML ORAL SUSPENSION 30 ML CUP PO PRN (10:23)
[2017-05-24] MEDS: AMOX TR/POT CLAV 875MG/125MG TABLETS (FP) PO SCH (10:23)
[2017-05-24] MEDS: URSODIOL 300 MG CAPSULE PO SCH (10:23)
--- NOTE | 2017-05-24 16:02 | PN ---
Progress Note (short form) - Note Progress Note: Subjective: no fever or chills. no abd pain. had 3 BMs since yesterdya Objective: Vital Signs: Last Vital Signs Temp Pulse Resp BP Pulse Ox 98.1 F 68 18 119/68 97 05/24/17 10:00 05/24/17 10:00 05/24/17 10:00 05/24/17 10:00 05/23/17 21:00 Laboratory Results - last 24 hr 05/24/17 05/24/17 05/24/17 06:00 06:00 08:30 WBC 8.1 RBC 4.81 Hgb 8.2 L Hct 28.3 L MCV 59.0 L MCH 17.0 L MCHC 28.8 L RDW 29.8 H Plt Count 400 MPV 8.5 Sodium 141 Potassium 3.9 Chloride 105 Carbon Dioxide 24 Anion Gap 12 BUN 6 L Creatinine 0.4 L Random Glucose 84 Calcium 8.6 Total Bilirubin 1.0 Cancelled Direct Bilirubin 0.4 H Cancelled AST 66 H Cancelled ALT 159 H Cancelled Alkaline Phosphatase 172 H Cancelled Total Protein 6.2 L Cancelled Albumin 2.9 L Cancelled Physical Exam: NAD, slightly icteric sclera, less jaundiced skin CV; RRR, 2/6 SM at LUSB . no radiation to carotids Lungs: CTAB Ext: no edema Abd: soft,nondistended today . NT. . tape over sugical laparoscopic wounds . uterus is felt up to the umbilicus ASSESSMENT AND PLAN: 41 y/o lady with no significant PMH who presented with abd pain , and was found to have acute cholecystitis and choledocolithiasis 1- Acute cholecystitis and choledocolithiasis: s/p ERCP, with 2 choledocolithiasis , pushed proximally and a stent placed. s/p CCY 05/22 with no perforation or abscess formation - KB today with less bowel distention . had BMs , better abd exam - [place] home to follow with GI for stent removal - repeat blood work - cont actigal. ( forgot to prescrobe it at [place] , sent to pharmacy afterwards, and Rn to call PT as she speaks only spanich to case picker the medicine ) 2- Iron def anemia: due to vaginal bleed ( large fibroids) , EGD with no source of bleed . f/u with NETWORK LEAD for hysterectomy - f/u with gi for colonoscopy -iron supp as outtp dc home . f/u with GI, medical office administrator, PCP . ( dr. schultz ) Visit type - Emergency Visit Emergency Visit: Yes ED Registration Date: 05/19/17 Care time: The patient presented to the Emergency Department on the above date and was hospitalized for further evaluation of their emergent condition. - New Patient This patient is new to me today: Yes Date on this admission: 05/24/17 - Critical Care Critical Care patient: No
--- NOTE | 2017-05-24 16:39 | DS ---
Physical Exam: SUBJECTIVE: Patient seen and examined by the attending.Dr Dueñas . OBJECTIVE: Vital Signs Period Temp Pulse Resp BP Sys/Santiago Pulse Ox Last 24 Hr 97.4 F-98.8 F 59-72 18-20 107-125/53-75 97 PHYSICAL EXAM per the attending exam NAD, slightly icteric sclera, less jaundiced skin CV; RRR, 2/6 SM at LUSB . no radiation to carotids Lungs: CTAB Ext: no edema Abd: soft,nondistended today . NT. . tape over sugical laparoscopic wounds . uterus is felt up to the umbilicus LABS Laboratory Results - last 24 hr 05/24/17 05/24/17 05/24/17 06:00 06:00 08:30 WBC 8.1 RBC 4.81 Hgb 8.2 L Hct 28.3 L MCV 59.0 L MCH 17.0 L MCHC 28.8 L RDW 29.8 H Plt Count 400 MPV 8.5 Sodium 141 Potassium 3.9 Chloride 105 Carbon Dioxide 24 Anion Gap 12 BUN 6 L Creatinine 0.4 L Random Glucose 84 Calcium 8.6 Total Bilirubin 1.0 Cancelled Direct Bilirubin 0.4 H Cancelled AST 66 H Cancelled ALT 159 H Cancelled Alkaline Phosphatase 172 H Cancelled Total Protein 6.2 L Cancelled Albumin 2.9 L Cancelled CBC, BMP 05/24/17 06:00 05/24/17 06:00 HOSPITAL COURSE: Date of Admission:05/19/17 Date of Discharge: 05/24/17 Ms Ceballos is a 41 y/o lady with no significant PMH who presented with abd pain , and was found to have acute cholecystitis and choledocolithiasis for Acute cholecystitis and choledocolithiasis s/p ERCP, with 2 choledocolithiasis , pushed proximally and a stent placed.s/p CCY 05/22 with no perforation or abscess formation , KUB with less bowel distention ,pt had BMs , better abd exam ,will dc home to follow with GI for stent removal, and to repeat blood work , cont actigal.for Iron def anemia: due to vaginal bleed ( large fibroids) , EGD with no source of bleed . f/u with CLINICAL SUPPORT TECH for hysterectomy,f/ u with gi for colonoscopy , iron supplent as out pt. dc home . f/u with GI, ditch tender, PCP . Minutes to complete discharge: 40 Discharge Summary Reason For Visit: LOW HEMOGLOBIN PAIN (ED SHORT STAY) Current Active Problems Abdominal pain (Acute) Abnormal liver enzymes (Acute) Acute cholecystitis (Acute) Anemia (Acute) Choledocholithiasis (Acute) Low hemoglobin (Acute) Pain (Acute) Fibroid uterus (Chronic) - Instructions Diet, Activity, Other Instructions: Dr. Sheridan Discharge Instructions Post Operative Instructions Physical activity Resume your normal everyday activity as tolerated no heavy lifting or exercise until seen by your surgeon. You may walk unlimited amounts of and climb stairs. You may resume driving the car when you feel safe and comfortable behind the wheel. Wound care If you have a bandage, leave it on, and keep dry for 48 - 72 hours. After that time discard the outer bandage. If there are tapes on the skin under the outer bandage, leave them in place. They will peel off in the next 7 to 10 days. Do Not peel them off. You may shower 2 days after surgery. If there are tapes present on the skin, they can get wet. Diet low fat diet . Eat healthy, high-fiber foods. Drink 6 to 8 glasses of liquid each day. This will assist in keeping your bowels are regular. Call Dr. Sheridan for any of the following: Severe pain not relieved by medication Fever of 101 or higher Excessive bleeding or drainage on dressing Inability to urinate Call the office at [phone] for a post operative appointment in 7 - 10 days. f/u with your Nutrition Intern regarding your common bile duct stent - You need to follow up with Dr. Alanis ( GI) for removal of the stent in your biliary tree after 2-3 month. please see him in 1 month to schedule that - notify your doctor with any pain, distention in your belly, or any fevers Please take Oxycodone 5 mg twice a day or as needed for three days. It will help you to control your pain after the surgery. Please obtain blood work in a week. Prescription for that will be given to you at discharge. Please follow up with primary care physician-Dr Min if you need a new primary care doctor ( he is at Dr. Bryce payne, call that number ) It is also very important that you will see OBGYN- Dr Mehta in 1-2 weeks after the discharge.as you will need removal of your uterus - start iron supplements , twice a day then increae to 3 times a day. it will make you constipated so please take stool softeners. - take augmentin for 3 more days ( start tonight ) . If you have bleeding, severe abdominal pain, nausea, vomiting, high fever please come to Emergency Room as soon as possible. Referrals: Conrado Wu MD [Staff Physician] - Tomas Sheridan MD [Staff Physician] - 1 Week Itzel Castro MD [Staff Physician] - 2 Weeks Pascual Alanis MD [Staff Physician] - 1 Month Disposition: HOME - Home Medications Comprehensive Discharge Medication List: Ambulatory Orders Amoxicillin/Potassium Clav [Augmentin 875-125 Tablet] 1 each PO Q12H #7 tablet 05/24/17 Ferrous Sulfate [Feosol] 325 mg PO BID #60 tablet 05/24/17 Miscellaneous Medical Supply [Outpatient Order] 1 each ASDIR #1 misc Oxycodone HCl 5 mg PO Q12H #6 tablet MDD 2 tabs 05/24/17 Ursodiol [Actigal] 300 mg NR BID #60 capsule 05/24/17 This patient is new to me today: No Emergency Visit: Yes ED Registration Date: 05/19/17 Care time: The patient presented to the Emergency Department on the above date and was hospitalized for further evaluation of their emergent condition. Critical Care patient: No - Discharge Referral Referred to [facility] Med P.C.: No
[2017-05-25 13:08] VITALS: BP 128/68; PULSE 72
--- NOTE | 2017-05-25 15:56 | PATH ---
Surgical Pathology Report Patient Name: JANEY BATRES Med. Rec. #: [id number] /Age/Gender: 1975 (Age: 41) / F Account: [id number] Location: [facility] MED/SURG Taken: 05/22/2017 Received: 05/22/2017 Reported: 05/25/2017 Physicians: MD Juan Castro M.D. Specimen(s) Received GALLBLADDER Clinical History Cholelithiasis and choledocholithiasis Final Diagnosis GALLBLADDER, LAPAROSCOPIC CHOLECYSTECTOMY: CHRONIC CHOLECYSTITIS AND CHOLELITHIASIS. Electronically Signed Janey Qiu M.D. Gross Description Received in formalin, labeled "gallbladder," is a 10.0 x 3.0 x 2.3 cm. gallbladder with a stapled margin of resection. The outer surface is amanda-pink and varies from smooth to shaggy. The lumen contains clear, mucinous bile as well as abundant amanda-white, irregular choleliths averaging 0.9 cm in greatest dimension. The mucosa is amanda and eroded. The wall of the gallbladder averages 0.1 cm. in thickness. Head End Desizing Machine Operator sections are submitted in one cassette. 05/22/201705/22/2017
--- NOTE | 2017-05-26 12:12 | OP ---
DATE OF OPERATION: 05/22/2017 PREOPERATIVE DIAGNOSIS: Choledocholithiasis status post endoscopic retrograde cholangiopancreatography and common bile duct stent, cholelithiasis. POSTOPERATIVE DIAGNOSIS: Choledocholithiasis status post endoscopic retrograde cholangiopancreatography and common bile duct stent, cholelithiasis. PROCEDURE: Laparoscopic cholecystectomy. SURGEON: Tomas Sheridan MD BLOCKING MACHINE OPERATOR SECOND: Tony Perry PA-C ANESTHESIA: General. OPERATIVE FINDINGS: There was a very dilated cystic duct. There was cholelithiasis. The rest of the findings were unremarkable. DESCRIPTION OF PROCEDURE: The patient was placed on the operating table in supine position, and after the induction of general anesthesia, the patient's abdomen was prepped with ChloraPrep and draped in sterile fashion. A timeout was taken and pneumoperitoneum was established just above the umbilicus using a Rich balloon cannula using a direct approach into the peritoneal cavity. The patient was also found to have an abnormally enlarged uterus with uterine fibroids. Stay sutures of 0 Vicryl were placed on either side of the trocar to facilitate closing at the end. Gallbladder was identified and placed on cephalad and lateral traction, and dissection was begun in the triangle of Calot. The peritoneum was opened medially and laterally, and the cystic duct, which was noted to be extremely dilated, was dissected proximally and distally for length. The cystic artery and multiple branches were simultaneously identified and dissected. The artery was divided after being clipped with 2 large clips proximally and distally and after critical view of safety was taken. Posterior branches were similarly treated. The duct, which was larger than 10 mm, was divided by firing an Endo MEGAN 45 blue load stapler across it. The gallbladder was then removed from the liver bed in a retrograde fashion using electrocautery, and once free from the edge of the elevator, placed in a specimen retrieval bag and brought out through the subxiphoid port. Pneumoperitoneum was reestablished and copious irrigation carried out. Hemostasis was verified, and then all ports were removed under laparoscopic vision without evidence of bleeding from the port sites, and the pneumoperitoneum evacuated. All port sites were infiltrated with 0.5% Marcaine and the defect at umbilicus closed using the previously placed 0 Vicryl stay suture. All port site skin incisions were closed with 4-0 Monocryl in a subcuticular fashion, followed by Steri-Strips and Band-Aid dressings. The patient was then aroused from general anesthesia and transferred to the postanesthesia care unit in stable condition, awake and alert. ESTIMATED BLOOD LOSS: 25 mL. REPLACEMENT: Crystalloid. DRAINS: None. SPECIMENS: Gallbladder and contents to Pathology. I, Tomas Sheridan, was physically present in the operating room from the time the patient was placed on the operating table until she was transferred to the postanesthesia care unit in my accompaniment. MD ROYER Su/[id number] MTDD
== END 2017-05-24 14:00 | disposition home or self-care (01) | DRG 263 ==
LOC: JER 23:14 → JERBED 05-19 06:19 → UNDOADMOB 05-19 06:41 → JERBED 05-19 06:41 → OBSVTOIN 05-19 08:11 → MERGE 05-19 08:11 → J7W 05-19 21:47
PROVIDERS: ADMIT Internal Medicine; ATTEND Internal Medicine
PROC: 30233N1 Transfusion of Nonautologous Red Blood Cells into Peripheral Vein, Percutaneous Approach (ICD-10-PCS; 2017-05-19)
PROC: 0F798DZ Dilation of Common Bile Duct with Intraluminal Device, Via Natural or Artificial Opening Endoscopic (ICD-10-PCS; 2017-05-20)
PROC: 0DJ08ZZ Inspection of Upper Intestinal Tract, Via Natural or Artificial Opening Endoscopic (ICD-10-PCS; 2017-05-20)
PROC: 0FT44ZZ Resection of Gallbladder, Percutaneous Endoscopic Approach (ICD-10-PCS; principal; 2017-05-22 07:30)
DX: K80.42 Calculus of bile duct with acute cholecystitis without obstruction (principal); N13.30 Unspecified hydronephrosis; D50.9 Iron deficiency anemia, unspecified; R74.8 Abnormal levels of other serum enzymes; N92.0 Excessive and frequent menstruation with regular cycle; E66.9 Obesity, unspecified; D25.9 Leiomyoma of uterus, unspecified; K44.9 Diaphragmatic hernia without obstruction or gangrene; Z68.35 Body mass index [BMI] 35.0-35.9, adult; E87.6 Hypokalemia; K21.9 Gastro-esophageal reflux disease without esophagitis; R17 Unspecified jaundice
CPT/HCPCS: 36415; 36430; 74018-TC-FY; 74019-TC-FY; 74177-TC; 74183-TC; 76000-TC-FY; 80048; 80053; 80076; 82150; 82248; 82272; 82550; 82728; 83540; 83550; 83690; 83735; 84100; 84703; 85025; 85027; 85610; 86140; 86704; 86706; 86708; 86803; 86850; 86900; 86901; 86922; 87340; 88304-TC; 93005; 93010; 94760; 99285-25; G0378; P9038; P9058

== ENCOUNTER 2018-09-21 16:56 | Inpatient (IN) | payer OTHER ==
[2018-09-21 17:18] VITALS: BMI 30.9
[2018-09-21] MEDS ORDERED: KETOROLAC TROMETHAMINE 30 MG/1 ML VIAL IVPUSH ONE (17:19)
[2018-09-21] MEDS ORDERED: SODIUM CHLORIDE 1,000 ML IV STA (17:19)
--- NOTE | 2018-09-21 17:20 | PDOC ---
Rapid Medical Evaluation Chief Complaint: Pain, Acute Time Seen by Provider: 09/21/18 17:16 Medical Evaluation: Allergies Allergy/AdvReac Type Severity Reaction Status Date / Time No Known Allergies Allergy Verified 06/13/15 19:16 09/21/18 17:19 Patient c/o: ruq pain with nausea Patient on brief exam: ruq tenderness, enlarged liver mild epigastric tenderness. vss no cva tenderness Patient ordered for: labs,urine and u/s Patient to proceed to the ED 09/21/18 17:21 Discharge Disposition - Diagnosis Anemia, Elevated transaminase level Abdominal pain Qualifiers: Abdominal location: right lower quadrant Qualified Code(s): R10.31 - Right lower quadrant pain - Discharge Dispostion Disposition: TRANSFER ACUTE CARE/OTHER HOSP Condition at time of disposition: Stable - Referrals - Patient Instructions - Post Discharge Activity
[2018-09-21] MEDS ORDERED: KETOROLAC TROMETHAMINE 30 MG/1 ML VIAL ONE (19:33)
--- NOTE | 2018-09-21 19:46 | PDOC ---
History of Present Illness - General Chief Complaint: Pain, Acute Stated Complaint: ABD PAIN Time Seen by Provider: 09/21/18 17:16 - History of Present Illness Initial Comments: 09/21/18 19:42 42-year-old female complaining of right lower quadrant pain since last night. Patient reports worsening abdominal pain with bowel movements. Denies nausea, vomiting, fevers/chills, urinary symptoms, vaginal discharge/bleeding. Last menstrual 09/18/2018. pmhx: Cholecystectomy on 04/2017, hernia repair. Surgery : dr. rogers GI: dr hartman during previous admission. Past History - Past Medical History Allergies/Adverse Reactions: Allergies Allergy/AdvReac Type Severity Reaction Status Date / Time No Known Allergies Allergy Verified 06/13/15 19:16 Home Medications: Ambulatory Orders Amoxicillin/Potassium Clav [Augmentin 875-125 Tablet] 1 each PO Q12H #7 tablet 05/24/17 Ferrous Sulfate [Feosol] 325 mg PO BID #60 tablet 05/24/17 Miscellaneous Medical Supply [Outpatient Order] 1 each ASDIR #1 misc Oxycodone HCl 5 mg PO Q12H #6 tablet MDD 2 tabs 05/24/17 Ursodiol [Actigal] 300 mg NR BID #60 capsule 05/24/17 COPD: No - Suicide/Smoking/Psychosocial Hx Smoking History: Never smoked Have you smoked in the past 12 months: No Number of Cigarettes Smoked Daily: 0 Information on smoking cessation initiated: No Hx Alcohol Use: No Drug/Substance Use Hx: No Substance Use Type: None Hx Substance Use Treatment: No Review of Systems - Review of Systems Able to Perform ROS?: Yes Is the patient limited Algerian proficient: No Constitutional: No: Symptoms Reported, See HPI, Chills, Diaphoresis, Fever, Loss of Appetite, Malaise, Night Sweats, Weakness, Weight Stable, Unintentional Wgt. Loss, Unexplained wgt Loss, Other HEENTM: No: Symptoms Reported, See HPI, Eye Pain, Blurred Vision, Tearing, Recent change in vision, Double Vision, Cataracts, Ear Pain, Ocular Prothesis, Ear Discharge, Nose Pain, Nose Congestion, Tinnitus, Nose Bleeding, Hearing Loss , Throat Pain, Throat Swelling, Mouth Pain, Dental Problems, Difficulty Swallowing, Mouth Swelling, Other ABD/GI: Yes: Abdominal cramping. No: Symptoms Reported, See HPI, Abdominal Distended, Abd. Pain w/ defecation, Blood Streaked Bowels, Constipated, Diarrhea , Difficulty Swallowing, Nausea, Poor Appetite, Poor Fluid Intake, Rectal Bleeding, Vomiting, Indigestion, Tarry Stools, Other : No: Symptoms Reported, See HPI, Burning, Dysuria, Discharge, Frequency, Flank Pain, Hematuria, Incontinence, Pain, Urgency, Testicular Mass, Testicular Swelling, Lesions, Testicular Pain, Other *Physical Exam - Vital Signs Last Vital Signs Temp Pulse Resp BP Pulse Ox 98.7 F 89 18 96/68 100 09/21/18 17:14 09/21/18 17:14 09/21/18 17:14 09/21/18 17:14 09/21/18 17:14 - Physical Exam General Appearance: Yes: Appropriately Dressed Respiratory/Chest: positive: Lungs Clear, Normal Breath Sounds Cardiovascular: positive: Regular Rhythm, Regular Rate Gastrointestinal/Abdominal: positive: Normal Bowel Sounds, Tender (RLQ right side. no RUpper quadrant tenderness), Soft Extremity: positive: Normal Capillary Refill, Normal Inspection, Normal Range of Motion Integumentary: positive: Dry, Warm, Jaundice, Pale Neurologic: positive: Fully Oriented, Alert ED Treatment Course - LABORATORY CBC & Chemistry Diagram: 09/21/18 20:20 09/21/18 20:20 Progress Note - Progress Note Progress Note: A: abdominal pain P: cbc cmp lipase IVF ua pain control US: no acute findings CTAP: pending Medical Decision Making - Medical Decision Making 09/21/18 23:58 ctap: No evidence of pneumoperitoneum. Uterine enlargement with large Anjum myoma. Bilateral minimal hydronephrosis due to enlarged uterus. Since previous exam there is mildly increased intrahepatic and extrahepatic biliary tract dilatation. CBD 1.6 cm previously 1.3 cm. Patient to be admitted for abdominal pain elevated transaminase. patient may need an MRCP tomorrow and GI consult. Hemoglobin 5.8 09/22/18 02:32 patient is to be admitted under hospitalist service. 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
--- NOTE | 2018-09-21 19:55 | PDOC ---
*Physical Exam - Vital Signs Last Vital Signs Temp Pulse Resp BP Pulse Ox 98.7 F 89 18 96/68 100 09/21/18 17:14 09/21/18 17:14 09/21/18 17:14 09/21/18 17:14 09/21/18 17:14 ED Treatment Course - LABORATORY CBC & Chemistry Diagram: 09/21/18 20:20 09/21/18 20:20 Medical Decision Making - Medical Decision Making 09/21/18 19:55 Patient seen by the advanced practice provider under my direct supervision. Ancillary testing reviewed as necessary. I agree with plan as outlined by the advanced practice provider. *DC/Admit/Observation/Transfer Diagnosis at time of Disposition: Abdominal pain Qualifiers: Abdominal location: right lower quadrant Qualified Code(s): R10.31 - Right lower quadrant pain - Discharge Dispostion Condition at time of disposition: Stable - Referrals - Patient Instructions - Post Discharge Activity
[2018-09-21 20:25] LABS: HCG,QUALITATIVE URINE Negative
[2018-09-21 20:35] LABS: EPI CELLS 8.6 /HPF (0-5/HPF); HYALINE CASTS 12 /lpf (0-8); PH,URINE 6.5 (5.0-8.0); URINE APPEARANCE CLEAR; URINE BACTERIA 139.4 /hpf (NEGATIVE); URINE BILIRUBIN 3+ (NEGATIVE); URINE COLOR DK YELLOW; URINE GLUCOSE (UA) NEGATIVE (NEGATIVE); URINE KETONE TRACE (NEGATIVE); URINE LEUK ESTERASE TRACE (NEGATIVE); URINE NITRITE POSITIVE (NEGATIVE); URINE PROTEIN 1+ (NEGATIVE); URINE WBC 2 /hpf (0-5)
[2018-09-21 20:37] LABS: URINE RBC 0 /hpf (0-4)
[2018-09-21] MEDS ORDERED: SODIUM CHLORIDE 1,000 ML IV SCH (20:45)
[2018-09-21 21:04] LABS: BASO % 0.2 % (0-2.0); HEMATOCRIT 21.9 % (32.4-45.2); LYMPH % 3.8 % (8-40); MCHC 26.5 g/dl (32.0-36.0); MEAN CELL VOLUME 51.8 fl (80-96); MEAN PLT VOLUME 8.4 fl (7.5-11.1); MONO % 5.2 % (3.8-10.2); NEUT % 90.8 % (42.8-82.8); PLATELET COUNT 920 K/MM3 (134-434); RBC 4.23 M/mm3 (3.60-5.2); RDW 21.4 % (11.6-15.6); WHITE BLOOD COUNT 16.2 K/mm3 (4.0-10.0)
[2018-09-21 21:06] LABS: HEMOGLOBIN 5.8 GM/dL (10.7-15.3); MCH 13.7 pg (25.7-33.7)
[2018-09-21 21:14] LABS: ALBUMIN 3.4 g/dl (3.4-5.0); BILIRUBIN,TOTAL 4.8 mg/dL (0.2-1); BLOOD UREA NITROGEN 8.2 mg/dL (7-18); CALCIUM 8.9 mg/dL (8.5-10.1); CREATININE 0.6 mg/dL (0.55-1.3); POTASSIUM 4.1 mmol/L (3.5-5.1); TOT PROT 7.3 g/dl (6.4-8.2)
[2018-09-21 21:42] LABS: ANISOCYTOSIS 3+; PLATELET ESTIMATE SIGNIFICANT INCREASE
[2018-09-21 23:03] LABS: INR 1.29 (0.83-1.09); PROTHROMBIN TIME (PATIENT) 15.3 SEC (9.7-13.0)
[2018-09-21 23:06] LABS: ACTIVATED PTT 38.3 SECONDS (25.2-36.5)
--- NOTE | 2018-09-22 00:13 | PN ---
Teaching Attending Note Name of Resident: Wolf Mcmullen ATTENDING PHYSICIAN STATEMENT I saw and evaluated the patient. I reviewed the resident's note and discussed the case with the resident. I agree with the resident's findings and plan as documented. SUBJECTIVE: Patient is a 42 year old woman with PMH of Anemia, Uterine fibroids, Choledocholithiasis (s/p Cholecystectomy), Bilateral hydroureteronephrosis and Umblical hernia (s/p hernia repair) complaining of right lower quadrant pain since last night. Had ERCP on 05/22/17 and a stent was placed (?all stones could not be retreived). Stent was supposed to be removed later, but she never followed up. Patient reports worsening abdominal pain with bowel movements. Recently had melena stool. Took Denies nausea, vomiting, fevers, chills, urinary symptoms, vaginal discharge/bleeding. Last menstrual period was on 2018. OBJECTIVE: Alert Vital Signs Period Temp Pulse Resp BP Sys/Santiago Pulse Ox Last 24 Hr 98.7 F-98.9 F 87-89 18 96-105/48-68 100-100 HEENT: Scleral icterus;aundice, eye redness or discharge, PERRLA, EOMI. Normocephalic, atraumatic. External ears are normal and hearing is grossly intact. No nasal discharge. Neck: Supple, nontender. No palpable adenopathy or thyromegaly. No JVD Chest: Good effort. Clear to auscultation and percussion. Heart: Regular. No S3, rub or murmur Abdomen: Not distended, soft, RUQ and epigastric tenderness and no HSM. No rebound or guarding. Normal bowel sounds. Ext: Peripheral pulses intact. No leg edema. Skin: Warm and dry. No petechiae, rash or ecchymosis. Neuro: Alert. Oriented x3. CN 2-12 grossly intact. Sensation grossly intact in all four extremities and DTR are symmetric. Psych: Appropriate mood and affect. Good insight. Current Medications Generic Name Dose Route Start Last Admin Trade Name Freq PRN Reason Stop Dose Admin Sodium Chloride 1,000 mls @ 150 mls/hr 09/21/18 20:45 09/21/18 22:43 Normal Saline - IV 150 mls/hr ASDIR CONCEPCION Administration Home Medications Medication Instructions Recorded Amoxicillin/Potassium Clav 1 each PO Q12H #7 tablet 05/24/17 [Augmentin 875-125 Tablet] Ferrous Sulfate [Feosol] 325 mg PO BID #60 tablet 05/24/17 Miscellaneous Medical Supply 1 each ASDIR #1 misc 05/24/17 [Outpatient Order] Oxycodone HCl 5 mg PO Q12H #6 tablet MDD 2 tabs 05/24/17 Ursodiol [Actigal] 300 mg NR BID #60 capsule 05/24/17 Abnormal Lab Results 09/21/18 09/21/18 09/21/18 19:47 20:20 20:20 WBC 16.2 H Hgb 5.8 L* Hct 21.9 L D MCV 51.8 L MCH 13.7 L D MCHC 26.5 L RDW 21.4 H Plt Count 920 H D Absolute Neuts (auto) 14.7 H Neutrophils % 90.8 H Lymphocytes % 3.8 L D PT with INR INR PTT (Actin FS) Total Bilirubin 4.8 H AST 267 H ALT 307 H Alkaline Phosphatase 789 H Lipase 44 L Ur Specific [place] 1.038 H Urine Protein 1+ H Urine Ketones Trace H Urine Nitrite Positive H Urine Bilirubin 3+ H Crossmatch 09/21/18 09/21/18 22:26 22:26 WBC Hgb Hct MCV MCH MCHC RDW Plt Count Absolute Neuts (auto) Neutrophils % Lymphocytes % PT with INR 15.30 H INR 1.29 H PTT (Actin FS) 38.3 H Total Bilirubin AST ALT Alkaline Phosphatase Lipase Ur Specific [place] Urine Protein Urine Ketones Urine Nitrite Urine Bilirubin Crossmatch See Detail ASSESSMENT AND PLAN: 1. Severe anemia/Abdominal pain - Has documented excessive menstrual blood loss , but will rule out GI bleeding. Initial stool guaiac is negative - will repeat x 2. CT scan of the abdomen/pelvis with IV contrast showed "No evidence of pneumoperitoneum. Uterine enlargement with large leomyoma. Bilateral minimal hydronephrosis due to enlarged uterus. Since previous examination there is mildly increased intrahepatic and extrahepatic biliary tract dilatation. CBD 1.6 cm previously 1.3 cm." Will get blood sample to ascertain intensity of iron deficiency before 1 PRBC transfusion. After the initial PRBC transfusion, would benefit from IV iron therapy. Consult TALENT ACQUISITION RELATIONSHIP MANAGER to discuss myomectomy with the patient - she is at risk for continued anemia and its consequences as well as kidney failure due to urinary outlet obstruction. Possible partial bile duct stent occlusion, elevated LFTs, leukocytosis and rectal temperature of 100.3 are concerning for cholangitis. Blood cultures being done and will treat with IV Zosyn, consult GI and ID. Would need ERCP to remove stent. Recent excessive tylenol ingestion may have contributed to spike in LFTs. Will trend LFTs, get hepatitis serology, tylenol level and ammonia level. 2. Obesity Counseled on the risks associated with obesity. Will provide patient all the necessary assistance, counseling and positive reinforcement to facilitate weight loss. Consult member of parliament. 3. DVT prophylaxis - SCD 4. Advance directives - Full code
[2018-09-22] MEDS ORDERED: MORPHINE SULFATE 2 MG/ML VIAL IVPUSH PRN (01:52)
--- NOTE | 2018-09-22 02:03 | HP ---
CHIEF COMPLAINT: Abdominal pain PCP: None HISTORY OF PRESENT ILLNESS: Pt. is a 42 y.o. English-speaking F w/ PMHx. of cholecystitis and choledocolithiasis in April 2017 requiring ERCP, stent placement and subsequent cholecystectomy presents for intermittent abdominal pain for 3 weeks that has now become persistent for the last 2 days. Pt. states that movement and palpation does not make the pain worse but that it just feels constant. Pt. denies any fever or chills but states that she has taken about "6 -8 packets" of Tylenol (2/Pack) over the last 2 days. Pt. denies any nausea, vomiting or diarrhea but endorses having a hard stool yesterday. Pt states that after having the stent placed last year that she never followed up with Dr. Alanis for stent removal. Pt. states that she has not followed up with a fur remodeler as recommended during her previous admission for the large fibroids causing dysfunctional uterine bleeding. Pt. states her LMP was and was the usual length of 5 days and the usual very heavy blood flow. Pt. endorses melena last week and 4 episodes of melena over the last month. Pt. denies ever having a colonoscopy. Pt. denies hematuria, hematochezia, dysuria, chest pain or shortness of breath. ER course was notable for: (1) Hepatitis Panel, Ketorolac, IVF (2) UCx., Abd. 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 denies taking any medications REVIEW OF SYSTEMS Denies PHYSICAL EXAMINATION Vital Signs - 24 hr 09/21/18 09/21/18 09/22/18 17:14 21:14 01:40 Temperature 98.7 F 98.9 F 100.3 F H Pulse Rate 89 Pulse Rate [ 87 Left Radial] Respiratory 18 Rate Blood Pressure 96/68 Blood Pressure 105/48 L [Left Arm] O2 Sat by Pulse 100 100 Oximetry (%) GENERAL: Awake, alert, and fully oriented, in acute distress. HEAD: Normal with no signs of trauma. EYES: Pupils equal, round and reactive to light, extraocular movements intact, sclera icterus, conjunctiva clear. EARS, NOSE, THROAT: Ears normal, nares patent, oropharynx clear without exudates. Moist mucous membranes. NECK: Normal range of motion, supple without lymphadenopathy, JVD, or masses. LUNGS: Breath sounds equal, clear to auscultation bilaterally. No wheezes, and no crackles. No accessory muscle use. HEART: Regular rate and rhythm, normal S1 and S2 with murmur ABDOMEN: Soft, epigastic tenderness, not distended, normoactive bowel sounds, no guarding, no rebound, supraumbilical masses. MAURICE: Rectal hypertonia, external skin tags, no external or internal hemorrhoids appreciated however tender to insertion. MUSCULOSKELETAL: Normal range of motion at all joints. No bony deformities or tenderness. No CVA tenderness. UPPER EXTREMITIES: 2+ radial pulses, warm, well-perfused. No cyanosis. No clubbing. No peripheral edema. LOWER EXTREMITIES: 2+ dorsal pedal pulses, warm, well-perfused. Prominent, flat superficial veins, No calf tenderness. No peripheral edema. NEUROLOGICAL: Normal speech. Gait not assessed PSYCHIATRIC: Cooperative. Good eye contact. Appropriate mood and affect. SKIN: Very warm, dry, normal turgor Laboratory Results - last 24 hr 09/21/18 09/21/18 09/21/18 19:47 20:20 20:20 WBC 16.2 H RBC 4.23 Hgb 5.8 L* Hct 21.9 L D MCV 51.8 L MCH 13.7 L D MCHC 26.5 L RDW 21.4 H Plt Count 920 H D MPV 8.4 Absolute Neuts (auto) 14.7 H Neutrophils % 90.8 H Lymphocytes % 3.8 L D Monocytes % 5.2 Eosinophils % 0.0 D Basophils % 0.2 Nucleated RBC % 0 Hypochromia 3+ Platelet Estimate Significant increase Platelet Comment No clumping noted Anisocytosis 3+ PT with INR INR PTT (Actin FS) Sodium 138 Potassium 4.1 Chloride 106 Carbon Dioxide 24 Anion Gap 8 BUN 8.2 Creatinine 0.6 Est GFR (CKD-EPI)AfAm 129.39 Est GFR (CKD-EPI)NonAf 111.64 Random Glucose 98 Lactic Acid Calcium 8.9 Total Bilirubin 4.8 H AST 267 H ALT 307 H Alkaline Phosphatase 789 H Total Protein 7.3 Albumin 3.4 Lipase 44 L Urine Color Dk yellow Urine Appearance Clear Urine pH 6.5 Ur Specific [place] 1.038 H Urine Protein 1+ H Urine Glucose (UA) Negative Urine Ketones Trace H Urine Blood Negative Urine Nitrite Positive H Urine Bilirubin 3+ H Urine Urobilinogen 1.0 Ur Leukocyte Esterase Trace Urine WBC (Auto) 2 Urine RBC (Auto) 0 Urine Casts (Auto) 12 U Epithel Cells (Auto) 8.6 Urine Bacteria (Auto) 139.4 Urine HCG, Qual Negative Stool Occult Blood Blood Type Antibody Screen Crossmatch 09/21/18 09/21/18 09/21/18 22:26 22:26 22:26 WBC RBC Hgb Hct MCV MCH MCHC RDW Plt Count MPV Absolute Neuts (auto) Neutrophils % Lymphocytes % Monocytes % Eosinophils % Basophils % Nucleated RBC % Hypochromia Platelet Estimate Platelet Comment Anisocytosis PT with INR 15.30 H INR 1.29 H PTT (Actin FS) 38.3 H Sodium Potassium Chloride Carbon Dioxide Anion Gap BUN Creatinine Est GFR (CKD-EPI)AfAm Est GFR (CKD-EPI)NonAf Random Glucose Lactic Acid 1.2 Calcium Total Bilirubin AST ALT Alkaline Phosphatase Total Protein Albumin Lipase Urine Color Urine Appearance Urine pH Ur Specific [place] Urine Protein Urine Glucose (UA) Urine Ketones Urine Blood Urine Nitrite Urine Bilirubin Urine Urobilinogen Ur Leukocyte Esterase Urine WBC (Auto) Urine RBC (Auto) Urine Casts (Auto) U Epithel Cells (Auto) Urine Bacteria (Auto) Urine HCG, Qual Stool Occult Blood Blood Type O POSITIVE Antibody Screen Negative Crossmatch See Detail 09/21/18 22:59 WBC RBC Hgb Hct MCV MCH MCHC RDW Plt Count MPV Absolute Neuts (auto) Neutrophils % Lymphocytes % Monocytes % Eosinophils % Basophils % Nucleated RBC % Hypochromia Platelet Estimate Platelet Comment Anisocytosis PT with INR INR PTT (Actin FS) Sodium Potassium Chloride Carbon Dioxide Anion Gap BUN Creatinine Est GFR (CKD-EPI)AfAm Est GFR (CKD-EPI)NonAf Random Glucose Lactic Acid Calcium Total Bilirubin AST ALT Alkaline Phosphatase Total Protein Albumin Lipase Urine Color Urine Appearance Urine pH Ur Specific [place] Urine Protein Urine Glucose (UA) Urine Ketones Urine Blood Urine Nitrite Urine Bilirubin Urine Urobilinogen Ur Leukocyte Esterase Urine WBC (Auto) Urine RBC (Auto) Urine Casts (Auto) U Epithel Cells (Auto) Urine Bacteria (Auto) Urine HCG, Qual Stool Occult Blood Negative Blood Type Antibody Screen Crossmatch ASSESSMENT/PLAN: Pt. is a 42 y.o. English-speaking F w/ PMHx. of cholecystitis and choledocolithiasis in April 2017 requiring ERCP, stent placement and subsequent cholecystectomy presents for intermittent abdominal pain for 3 weeks that has now become persistent for the last 2 days. #Abdominal Pain 2/2 suspected cholangitis 2/[address] A/P: No pneumoperitoneum, CBD: 1.6cm (increased from 1.3cm last year), and partially occluded stent, supraumbilical hernia Abd. US: CBD 1.1cm, minimal to mild hepatomegaly, s/p CCY AST:267 , ALT:307, ALP:789 TBili: 4.8 GI Consult (Dr. Alanis) appreicated EGD in 2018 showed small hiatal hernia without evidence of gastritis Discussed case with Dr. Damico--> will keep IVF, keep NPO for likely ERCP today , c/w Zosyn 4.5 Q6H APAP level <2 c/w Zosyn 4.5 Q6H f/u BCx. Consider MRCP prior to stent removal as Pt. may have intrahepatic stones #Microcytic Anemia 2/2 Degenerative Leiomyoma HgB: 5.8, MCV: 51.8--> trend Likely 2/2 Iron deficiency Anemia from chronic blood loss during menses f/u Iron studies 2 units pRBCs ordered--> will give 2 units Venofer after Blood transfusion. Contraindication of exacerbating sepsis is only theoretical and only been studied in mice. The risk of increasing the Pt.s antibodies for future transfusions and for future transplants is greater. Pt. will likely require future transfusions before and after hysterectomy or myomectomy. CT A/P: 2.7cm x 1.4cm R. ovarian cyst, 11cm x 9cm large partially degenerated leiomyoma, minimal bilateral hydronephrosis EXHIBIT DISPLAY REPRESENTATIVE Consult (Dr. Sandoval) appreciated--> will likely need myomectomy vs. hysterctomy Consider Hematology/Oncology consult for evaluation of degenerative leiomyoma and for antiplatelet agents in the setting of thrombocytosis. Thrombocytosis to 920k may be reactive to ongoing infection and anemia, will continue to trend. ASA indicated once Platelets are above 1 million. f/u FOBT x 2, 1st FOBT negative #FEN NS @ 150ml/hr monitor electrolytes and replete as needed NPO-for likely OR today per Dr. Damico. #DVT Ppx. No AC- given anemia and risk of bleeding TEDs Visit type - Emergency Visit Emergency Visit: Yes ED Registration Date: 09/22/18 Care time: The patient presented to the Emergency Department on the above date and was hospitalized for further evaluation of their emergent condition. - New Patient This patient is new to me today: Yes Date on this admission: 09/22/18 - Critical Care Critical Care patient: No
[2018-09-22 03:04] LABS: BASO % 0.2 % (0-2.0); HEMATOCRIT 19.6 % (32.4-45.2); LYMPH % 4.1 % (8-40); MEAN CELL VOLUME 51.1 fl (80-96); MEAN PLT VOLUME 8.3 fl (7.5-11.1); MONO % 3.7 % (3.8-10.2); PLATELET COUNT 838 K/MM3 (134-434); RBC 3.84 M/mm3 (3.60-5.2); RDW 21.2 % (11.6-15.6); RETICULOCYTES 2.38 % (0.5-1.5); WHITE BLOOD COUNT 18.3 K/mm3 (4.0-10.0)
[2018-09-22 03:19] LABS: INR 1.35 (0.83-1.09)
[2018-09-22 03:21] LABS: MCH 13.8 pg (25.7-33.7)
[2018-09-22 03:22] LABS: HEMOGLOBIN 5.3 GM/dL (10.7-15.3)
[2018-09-22 03:31] LABS: BILIRUBIN,DIRECT 3.9 mg/dL (0.0-0.2); BILIRUBIN,TOTAL 5.1 mg/dL (0.2-1); CALCIUM 8.2 mg/dL (8.5-10.1); CREATININE 0.5 mg/dL (0.55-1.3); MAGNESIUM 1.9 mg/dL (1.8-2.4); PHOSPHOROUS 2.5 mg/dL (2.5-4.9); POTASSIUM 3.6 mmol/L (3.5-5.1); TOT PROT 6.4 g/dl (6.4-8.2)
[2018-09-22] MEDS ORDERED: PIPERACILLIN/TAZOB 4.5 GM 4.5 GM/100 ML BAG IVPB ONE ×2 (03:32→08:48)
[2018-09-22] MEDS ORDERED: morphine SULFATE 4 MG/ML VIAL ONE (03:41)
[2018-09-22] MEDS: PIPERACILLIN/TAZOB 4.5 GM 4.5 GM in DEXTROSE 5%-WATER 100 ML IVPB SCH ×2 (03:53→09:23)
[2018-09-22] MEDS ORDERED: IRON SUCROSE INJECTION 300 MG in SODIUM CHLORIDE 235 ML IVPB ONE ×3 (04:46→15:00)
[2018-09-22 06:52] LABS: ANISOCYTOSIS 3+
[2018-09-22 06:53] LABS: PLATELET ESTIMATE SIGNIFICANT INCREASE; TEAR DROP CELLS 1+
--- NOTE | 2018-09-22 08:06 | EKG ---
Test Reason : Blood Pressure : / mmHG Vent. Rate : 097 BPM Atrial Rate : 097 BPM P-R Int : 126 ms QRS Dur : 082 ms QT Int : 356 ms P-R-T Axes : 050 017 018 degrees QTc Int : 452 ms NORMAL SINUS RHYTHM NORMAL ECG WHEN COMPARED WITH ECG OF 15-JUN-2015 08:48, NONSPECIFIC T WAVE ABNORMALITY NOW EVIDENT IN ANTERIOR LEADS Confirmed by GALE MONTANEZ, GALA ([id number]) on 09/22/2018 8:05:47 AM Referred By: Confirmed By:GALA BEASLEY MD
[2018-09-22] MEDS ORDERED: MORPHINE SULFATE 2 MG/ML VIAL ONE (08:47)
--- NOTE | 2018-09-22 10:11 | CON.GI ---
Consult Consult Specialty:: Gastroenterology Referred by:: Dr. Armenta Reason for Consultation:: Abominal pain, elevated LFTs - History of Present Illness Chief Complaint: Abdominal pain History of Present Illness: 42yo female h/o uterine fibroids, choledocholithiasis s/p ERCP/sphincterotomy/ stent placement (05/20/17), cholecystectomy (05/22/17), bilateral hydroureteronephrosis and umbilical hernia repair (2015) presenting with worsening upper abdominal pain x 1-2 days. Pt with admission in 04/2017 with abdominal pain found to have choledocholithiasis s/p EGD/ERCP by Dr. Alanis on 05/22/17, had proximal CBD stones that could not be removed, sphincterotomy performed and stent was placed and pt was advised to follow up with Dr. Solo at [facility]. No interval followup and pt has not seen by GI in the interim. Pt north korean speaking, daughter present at bedside and translates. Pt reports feeling well until 1 month ago. Now reporting intermittent epigastric and RUQ pain developing 3-4 weeks ago worsening over the past 1-2 days. Reports fatigue. Notes constipation moving bowels every 1-2 days which she feels aggravated the pain and limited her po intake. Taking advil and tylenol 1-2x week for the pain. Denies n/v, fever/chills. Reports episode of formed black stool, denies melena or hematochezia. Continues to report heavy menses, last on 09/13-. No prior colonoscopy. Denies h/o liver disease/etoh/IVDU. No known family h/o GI malignancy. - History Source History Provided By: Patient, Family Member - Past Medical History Gastrointestinal: Yes: Gastritis Hepatobiliary: Yes: Cholelithiasis Renal/: Yes: Other (declines urine symptoms ) ...LMP: 04/30/17 Infectious Disease: Yes: Other (denies ). No: STD's - Past Surgical History Past Surgical History: Yes: Hernia Repair (umbilical hernia repair 2014 at [facility] ) - Alcohol/Substance Use Hx Alcohol Use: No History of Substance Use: reports: None - Smoking History Smoking history: Never smoked Have you smoked in the past 12 months: No Aproximately how many cigarettes per day: 0 - Social History Usual Living Arrangement: With Spouse ADL: Independent Occupation: Unemployed History of Recent Travel: No Home Medications - Allergies Allergies/Adverse Reactions: Allergies Allergy/AdvReac Type Severity Reaction Status Date / Time No Known Allergies Allergy Verified 06/13/15 19:16 - Home Medications Home Medications: Ambulatory Orders Amoxicillin/Potassium Clav [Augmentin 875-125 Tablet] 1 each PO Q12H #7 tablet 05/24/17 Ferrous Sulfate [Feosol] 325 mg PO BID #60 tablet 05/24/17 Miscellaneous Medical Supply [Outpatient Order] 1 each ASDIR #1 misc Oxycodone HCl 5 mg PO Q12H #6 tablet MDD 2 tabs 05/24/17 Ursodiol [Actigal] 300 mg NR BID #60 capsule 05/24/17 Family Disease History - Family Disease History Family Disease History: Other: Father (alive: healthy), Mother (: 55: asthma ), Brother (2, healthy), Sister (3, healthy), Son (1 healthy), Daughter (2, 1 with raynaud's) Review of Systems - Review of Systems Constitutional: reports: Chills, Fever, Weakness Cardiovascular: reports: No Symptoms Respiratory: reports: No Symptoms Gastrointestinal: reports: Abdominal Pain, Constipation Genitourinary: reports: No Symptoms Physical Exam-GI Vital Signs: Vital Signs Temperature 99.1 F 09/22/18 09:10 Pulse Rate 95 H 09/22/18 09:10 Respiratory Rate 16 09/22/18 09:10 Blood Pressure 111/58 L 09/22/18 09:10 O2 Sat by Pulse Oximetry (%) 99 09/22/18 09:10 Constitutional: Yes: Well Nourished, No Distress Cardiovascular: Yes: WNL, Regular Rate and Rhythm Respiratory: Yes: WNL, Regular, CTA Bilaterally Gastrointestinal Inspection: Yes: WNL ...Palpate: Yes: Other (Abd soft, mildly tender on palpation in epigastrium and RUQ, no rebound, guarding or rigidity) ...Rectal Exam: Yes: Other (empty rectal vault, no blood) Labs: CBC, BMP 09/22/18 02:44 09/22/18 02:44 INR, PTT INR 1.35 (0.83-1.09) H 09/22/18 02:44 Imaging - Results Cat Scan: Report Reviewed, Image Reviewed Ultrasound: Report Reviewed, Image Reviewed Problem List - Problems (1) Abdominal pain Assessment/Plan: 42yo female h/o uterine fibroids, choledocholithiasis s/p ERCP/sphincterotomy/ stent placement (05/20/17), cholecystectomy (05/22/17), bilateral hydroureteronephrosis and umbilical hernia repair (2015) presenting with fatigue , upper abdominal pain and anemia. Pt had been advised follow up at [facility] for repeat ERCP however has had no interval GI follow up. Elevated LFTs with low grade fever and leucocytosis also noted concerning for cholangitis. US and CT imaging revealing CBD dilation, no obvious stones however stent in place possibly with occlusion. -Continue resuscitative measures, IVF, prbc transfusion (aim Hb >7) -Continue IV antibiotics -Monitor LFTs -Keep NPO -Plan for ERCP today (case d/w Dr. Alanis) Code(s): R10.9 - UNSPECIFIED ABDOMINAL PAIN Qualifiers: Abdominal location: right lower quadrant Qualified Code(s): R10.31 - Right lower quadrant pain (2) Microcytic anemia Assessment/Plan: No overt GI bleeding, FOBT negative and no blood on rectal exam. Heavy menses noted in setting of large leiomyoma. Ferritin 6. -Continue to monitor Hb, transfuse as needed aim Hb >7 -Gynecology evaluation -Had EGD on prior hospitalization. Colonoscopy can be considered as outpatient though likely gynecological source Discussed with medicine team Code(s): D50.9 - IRON DEFICIENCY ANEMIA, UNSPECIFIED
[2018-09-22] MEDS ORDERED: INDOMETHACIN 50 MG RECTAL SUPPOSITORY PR ONE ×2 (12:30→14:20)
--- NOTE | 2018-09-22 13:08 | PN ---
Teaching Attending Note Name of Resident: Ernesto Boggs ATTENDING PHYSICIAN STATEMENT I saw and evaluated the patient. I reviewed the resident's note and discussed the case with the resident. I agree with the resident's findings and plan as documented. SUBJECTIVE: Patient says abdominal pain is better. OBJECTIVE: Vital Signs Period Temp Pulse Resp BP Sys/Santiago Pulse Ox Last 24 Hr 98.5 F-100.8 F 87-97 16-18 96-117/40-68 97-100 HEART: S1S2, RRR LUNGS: Clear ABDOMEN: Obese, soft, (+) epigastric tenderness, non-distended, normal BS EXTREMITIES: No edema Laboratory Results - last 24 hr 09/21/18 09/21/18 09/21/18 19:47 20:20 20:20 WBC 16.2 H RBC 4.23 Hgb 5.8 L* Hct 21.9 L D MCV 51.8 L MCH 13.7 L D MCHC 26.5 L RDW 21.4 H Plt Count 920 H D MPV 8.4 Absolute Neuts (auto) 14.7 H Total Counted Neutrophils % 90.8 H Neutrophils % (Manual) Lymphocytes % 3.8 L D Lymphocytes % (Manual) Monocytes % 5.2 Monocytes % (Manual) Eosinophils % 0.0 D Basophils % 0.2 Nucleated RBC % 0 Hypochromia 3+ Platelet Estimate Significant increase Platelet Comment No clumping noted Polychromasia Poikilocytosis Anisocytosis 3+ Microcytosis Tear Drop Cells Retic Count PT with INR INR PTT (Actin FS) Sodium 138 Potassium 4.1 Chloride 106 Carbon Dioxide 24 Anion Gap 8 BUN 8.2 Creatinine 0.6 Est GFR (CKD-EPI)AfAm 129.39 Est GFR (CKD-EPI)NonAf 111.64 Random Glucose 98 Lactic Acid Calcium 8.9 Phosphorus Magnesium Ferritin Total Bilirubin 4.8 H Direct Bilirubin AST 267 H ALT 307 H Alkaline Phosphatase 789 H Total Protein 7.3 Albumin 3.4 Lipase 44 L Urine Color Dk yellow Urine Appearance Clear Urine pH 6.5 Ur Specific [place] 1.038 H Urine Protein 1+ H Urine Glucose (UA) Negative Urine Ketones Trace H Urine Blood Negative Urine Nitrite Positive H Urine Bilirubin 3+ H Urine Urobilinogen 1.0 Ur Leukocyte Esterase Trace Urine WBC (Auto) 2 Urine RBC (Auto) 0 Urine Casts (Auto) 12 U Epithel Cells (Auto) 8.6 Urine Bacteria (Auto) 139.4 Urine HCG, Qual Negative Stool Occult Blood Acetaminophen Blood Type Antibody Screen Crossmatch 09/21/18 09/21/18 09/21/18 22:26 22:26 22:26 WBC RBC Hgb Hct MCV MCH MCHC RDW Plt Count MPV Absolute Neuts (auto) Total Counted Neutrophils % Neutrophils % (Manual) Lymphocytes % Lymphocytes % (Manual) Monocytes % Monocytes % (Manual) Eosinophils % Basophils % Nucleated RBC % Hypochromia Platelet Estimate Platelet Comment Polychromasia Poikilocytosis Anisocytosis Microcytosis Tear Drop Cells Retic Count PT with INR 15.30 H INR 1.29 H PTT (Actin FS) 38.3 H Sodium Potassium Chloride Carbon Dioxide Anion Gap BUN Creatinine Est GFR (CKD-EPI)AfAm Est GFR (CKD-EPI)NonAf Random Glucose Lactic Acid 1.2 Calcium Phosphorus Magnesium Ferritin Total Bilirubin Direct Bilirubin AST ALT Alkaline Phosphatase Total Protein Albumin Lipase Urine Color Urine Appearance Urine pH Ur Specific [place] Urine Protein Urine Glucose (UA) Urine Ketones Urine Blood Urine Nitrite Urine Bilirubin Urine Urobilinogen Ur Leukocyte Esterase Urine WBC (Auto) Urine RBC (Auto) Urine Casts (Auto) U Epithel Cells (Auto) Urine Bacteria (Auto) Urine HCG, Qual Stool Occult Blood Acetaminophen Blood Type O POSITIVE Antibody Screen Negative Crossmatch See Detail 09/21/18 09/22/18 09/22/18 22:59 01:56 02:44 WBC 18.3 H RBC 3.84 Hgb 5.3 L* Hct 19.6 L MCV 51.1 L MCH 13.8 L MCHC 27.0 L RDW 21.2 H Plt Count 838 H MPV 8.3 Absolute Neuts (auto) 16.8 H Total Counted 100 Neutrophils % 92.0 H Neutrophils % (Manual) 94.0 H* Lymphocytes % 4.1 L Lymphocytes % (Manual) 3.0 L Monocytes % 3.7 L Monocytes % (Manual) 3 L Eosinophils % 0.0 Basophils % 0.2 Nucleated RBC % 0 Hypochromia 3+ Platelet Estimate Significant increase Platelet Comment No clotting detected Polychromasia 2+ Poikilocytosis 2+ Anisocytosis 3+ Microcytosis 3+ Tear Drop Cells 1+ Retic Count 2.38 H PT with INR INR PTT (Actin FS) Sodium Potassium Chloride Carbon Dioxide Anion Gap BUN Creatinine Est GFR (CKD-EPI)AfAm Est GFR (CKD-EPI)NonAf Random Glucose Lactic Acid Calcium Phosphorus Magnesium Ferritin 6.8 L Total Bilirubin Direct Bilirubin AST ALT Alkaline Phosphatase Total Protein Albumin Lipase Urine Color Urine Appearance Urine pH Ur Specific [place] Urine Protein Urine Glucose (UA) Urine Ketones Urine Blood Urine Nitrite Urine Bilirubin Urine Urobilinogen Ur Leukocyte Esterase Urine WBC (Auto) Urine RBC (Auto) Urine Casts (Auto) U Epithel Cells (Auto) Urine Bacteria (Auto) Urine HCG, Qual Stool Occult Blood Negative Acetaminophen Blood Type Antibody Screen Crossmatch 09/22/18 09/22/18 09/22/18 02:44 02:44 02:44 WBC RBC Hgb Hct MCV MCH MCHC RDW Plt Count MPV Absolute Neuts (auto) Total Counted Neutrophils % Neutrophils % (Manual) Lymphocytes % Lymphocytes % (Manual) Monocytes % Monocytes % (Manual) Eosinophils % Basophils % Nucleated RBC % Hypochromia Platelet Estimate Platelet Comment Polychromasia Poikilocytosis Anisocytosis Microcytosis Tear Drop Cells Retic Count PT with INR 16.00 H INR 1.35 H PTT (Actin FS) Sodium 138 Potassium 3.6 Chloride 111 H Carbon Dioxide 20 L Anion Gap 7 L BUN 7.0 Creatinine 0.5 L Est GFR (CKD-EPI)AfAm 137.39 Est GFR (CKD-EPI)NonAf 118.54 Random Glucose 100 Lactic Acid Calcium 8.2 L Phosphorus 2.5 Magnesium 1.9 Ferritin 6.9 L Total Bilirubin 5.1 H Direct Bilirubin 3.9 H AST 164 H ALT 235 H Alkaline Phosphatase 688 H Total Protein 6.4 Albumin 3.0 L Lipase Urine Color Urine Appearance Urine pH Ur Specific [place] Urine Protein Urine Glucose (UA) Urine Ketones Urine Blood Urine Nitrite Urine Bilirubin Urine Urobilinogen Ur Leukocyte Esterase Urine WBC (Auto) Urine RBC (Auto) Urine Casts (Auto) U Epithel Cells (Auto) Urine Bacteria (Auto) Urine HCG, Qual Stool Occult Blood Acetaminophen < 2.0 L Blood Type Antibody Screen Crossmatch Current Medications Generic Name Dose Route Start Last Admin Trade Name Freq PRN Reason Stop Dose Admin Sodium Chloride 1,000 mls @ 150 mls/hr 09/21/18 20:45 09/21/18 22:43 Normal Saline - IV 150 mls/hr ASDIR CONCEPCION Administration Iron Sucrose 300 mg/ Sodium 250 mls @ 166.667 mls/hr 09/22/18 13:00 Chloride IVPB 09/22/18 14:29 ONCE ONE Piperacillin Sod/Tazobactam 100 mls @ 200 mls/hr 09/22/18 15:00 Sod 4.5 gm/ Dextrose IVPB Q6H-IV CONCEPCION Protocol Iron Sucrose 300 mg/ Sodium 250 mls @ 166.667 mls/hr 09/22/18 15:00 Chloride IVPB 09/22/18 16:29 ONCE ONE Morphine Sulfate 2 mg 09/22/18 01:52 09/22/18 09:06 Morphine Sulfate IVPUSH 2 mg Q4H PRN Administration PAIN LEVEL 7 - 10 ASSESSMENT AND PLAN: This is a 42 year old woman with a history of choledocholithiasis, ERCP with sphincrerotomy and stent placement 04/2017, cholecystectomy, anemia, abnormal uterine bleeding, uterine fibroids with bilateral hydroureteronephrosis who presented to the ED with abdominal pain. 1. Sepsis (leukocytosis, fever, tachycardia) secondary to acute cholangitis from occluded CBD stent - Continue Zosyn - Continue IV fluid - Maintain NPO - Plan for ERCP today 2. Acute blood loss anemia secondary to abnormal uterine bleeding - Being transfused 2 units PRBCs - No evidence of GI bleeding - Monitor hemoglobin 3. Iron deficiency anemia secondary to abnormal uterine bleeding from uterine fibroids - Continue IV iron sucrose - [employer] evaluation 4. Reactive thrombocytosis - Platelets improving - will monitor 5. Obesity with BMI 30.8
[2018-09-22] MEDS ORDERED: MIDAZOLAM HCL 2 MG/2 ML SINGLE DOSE VIAL ONE (13:22)
[2018-09-22] MEDS ORDERED: fentaNYL CITRATE 250 MCG/5 ML VIAL ONE (13:23)
--- NOTE | 2018-09-22 13:31 | PN ---
Progress Note (short form) - Note Progress Note: GI Note; Dr. Faria's consultation is appreciated. Using a dish up person I informed Janey of the risks of ERCP including perforation, hemorrhage and ERCP induced pancreatitis. She never followup up with Dr Solo to have her stent removed as she had been instructed to do. She has granted consent for repeat ERCP. Will proceed with emergent ERCP for cholangitis .
--- NOTE | 2018-09-22 14:06 | PN ---
Physical Exam: SUBJECTIVE: Patient seen and examined at bedside. Endorses epigastric tenderness. Denies nausea/vomiting. OBJECTIVE: Vital Signs Period Temp Pulse Resp BP Sys/Santiago Pulse Ox Last 24 Hr 98.5 F-100.8 F 87-97 16-18 96-119/40-68 97-100 GENERAL: Resting in bed. NAD HEAD: Normal with no signs of trauma. EYES: Scleral icterus ENT: MMM NECK: Trachea midline, full range of motion, supple. LUNGS: CTAB HEART: RRR S1S2 ABDOMEN: TTP Epigastric area. EXTREMITIES: No CCE NEUROLOGICAL: Cranial nerves II through XII grossly intact. PSYCH: Normal mood, normal affect. SKIN: Warm, dry, normal turgor, no rashes or lesions noted Laboratory Results - last 24 hr 09/21/18 09/21/18 09/21/18 19:47 20:20 20:20 WBC 16.2 H RBC 4.23 Hgb 5.8 L* Hct 21.9 L D MCV 51.8 L MCH 13.7 L D MCHC 26.5 L RDW 21.4 H Plt Count 920 H D MPV 8.4 Absolute Neuts (auto) 14.7 H Total Counted Neutrophils % 90.8 H Neutrophils % (Manual) Lymphocytes % 3.8 L D Lymphocytes % (Manual) Monocytes % 5.2 Monocytes % (Manual) Eosinophils % 0.0 D Basophils % 0.2 Nucleated RBC % 0 Hypochromia 3+ Platelet Estimate Significant increase Platelet Comment No clumping noted Polychromasia Poikilocytosis Anisocytosis 3+ Microcytosis Tear Drop Cells Retic Count PT with INR INR PTT (Actin FS) Sodium 138 Potassium 4.1 Chloride 106 Carbon Dioxide 24 Anion Gap 8 BUN 8.2 Creatinine 0.6 Est GFR (CKD-EPI)AfAm 129.39 Est GFR (CKD-EPI)NonAf 111.64 Random Glucose 98 Lactic Acid Calcium 8.9 Phosphorus Magnesium Ferritin Total Bilirubin 4.8 H Direct Bilirubin AST 267 H ALT 307 H Alkaline Phosphatase 789 H Total Protein 7.3 Albumin 3.4 Lipase 44 L Urine Color Dk yellow Urine Appearance Clear Urine pH 6.5 Ur Specific [place] 1.038 H Urine Protein 1+ H Urine Glucose (UA) Negative Urine Ketones Trace H Urine Blood Negative Urine Nitrite Positive H Urine Bilirubin 3+ H Urine Urobilinogen 1.0 Ur Leukocyte Esterase Trace Urine WBC (Auto) 2 Urine RBC (Auto) 0 Urine Casts (Auto) 12 U Epithel Cells (Auto) 8.6 Urine Bacteria (Auto) 139.4 Urine HCG, Qual Negative Stool Occult Blood Acetaminophen Blood Type Antibody Screen Crossmatch 09/21/18 09/21/18 09/21/18 22:26 22:26 22:26 WBC RBC Hgb Hct MCV MCH MCHC RDW Plt Count MPV Absolute Neuts (auto) Total Counted Neutrophils % Neutrophils % (Manual) Lymphocytes % Lymphocytes % (Manual) Monocytes % Monocytes % (Manual) Eosinophils % Basophils % Nucleated RBC % Hypochromia Platelet Estimate Platelet Comment Polychromasia Poikilocytosis Anisocytosis Microcytosis Tear Drop Cells Retic Count PT with INR 15.30 H INR 1.29 H PTT (Actin FS) 38.3 H Sodium Potassium Chloride Carbon Dioxide Anion Gap BUN Creatinine Est GFR (CKD-EPI)AfAm Est GFR (CKD-EPI)NonAf Random Glucose Lactic Acid 1.2 Calcium Phosphorus Magnesium Ferritin Total Bilirubin Direct Bilirubin AST ALT Alkaline Phosphatase Total Protein Albumin Lipase Urine Color Urine Appearance Urine pH Ur Specific [place] Urine Protein Urine Glucose (UA) Urine Ketones Urine Blood Urine Nitrite Urine Bilirubin Urine Urobilinogen Ur Leukocyte Esterase Urine WBC (Auto) Urine RBC (Auto) Urine Casts (Auto) U Epithel Cells (Auto) Urine Bacteria (Auto) Urine HCG, Qual Stool Occult Blood Acetaminophen Blood Type O POSITIVE Antibody Screen Negative Crossmatch See Detail 09/21/18 09/22/18 09/22/18 22:59 01:56 02:44 WBC 18.3 H RBC 3.84 Hgb 5.3 L* Hct 19.6 L MCV 51.1 L MCH 13.8 L MCHC 27.0 L RDW 21.2 H Plt Count 838 H MPV 8.3 Absolute Neuts (auto) 16.8 H Total Counted 100 Neutrophils % 92.0 H Neutrophils % (Manual) 94.0 H* Lymphocytes % 4.1 L Lymphocytes % (Manual) 3.0 L Monocytes % 3.7 L Monocytes % (Manual) 3 L Eosinophils % 0.0 Basophils % 0.2 Nucleated RBC % 0 Hypochromia 3+ Platelet Estimate Significant increase Platelet Comment No clotting detected Polychromasia 2+ Poikilocytosis 2+ Anisocytosis 3+ Microcytosis 3+ Tear Drop Cells 1+ Retic Count 2.38 H PT with INR INR PTT (Actin FS) Sodium Potassium Chloride Carbon Dioxide Anion Gap BUN Creatinine Est GFR (CKD-EPI)AfAm Est GFR (CKD-EPI)NonAf Random Glucose Lactic Acid Calcium Phosphorus Magnesium Ferritin 6.8 L Total Bilirubin Direct Bilirubin AST ALT Alkaline Phosphatase Total Protein Albumin Lipase Urine Color Urine Appearance Urine pH Ur Specific [place] Urine Protein Urine Glucose (UA) Urine Ketones Urine Blood Urine Nitrite Urine Bilirubin Urine Urobilinogen Ur Leukocyte Esterase Urine WBC (Auto) Urine RBC (Auto) Urine Casts (Auto) U Epithel Cells (Auto) Urine Bacteria (Auto) Urine HCG, Qual Stool Occult Blood Negative Acetaminophen Blood Type Antibody Screen Crossmatch 09/22/18 09/22/18 09/22/18 02:44 02:44 02:44 WBC RBC Hgb Hct MCV MCH MCHC RDW Plt Count MPV Absolute Neuts (auto) Total Counted Neutrophils % Neutrophils % (Manual) Lymphocytes % Lymphocytes % (Manual) Monocytes % Monocytes % (Manual) Eosinophils % Basophils % Nucleated RBC % Hypochromia Platelet Estimate Platelet Comment Polychromasia Poikilocytosis Anisocytosis Microcytosis Tear Drop Cells Retic Count PT with INR 16.00 H INR 1.35 H PTT (Actin FS) Sodium 138 Potassium 3.6 Chloride 111 H Carbon Dioxide 20 L Anion Gap 7 L BUN 7.0 Creatinine 0.5 L Est GFR (CKD-EPI)AfAm 137.39 Est GFR (CKD-EPI)NonAf 118.54 Random Glucose 100 Lactic Acid Calcium 8.2 L Phosphorus 2.5 Magnesium 1.9 Ferritin 6.9 L Total Bilirubin 5.1 H Direct Bilirubin 3.9 H AST 164 H ALT 235 H Alkaline Phosphatase 688 H Total Protein 6.4 Albumin 3.0 L Lipase Urine Color Urine Appearance Urine pH Ur Specific [place] Urine Protein Urine Glucose (UA) Urine Ketones Urine Blood Urine Nitrite Urine Bilirubin Urine Urobilinogen Ur Leukocyte Esterase Urine WBC (Auto) Urine RBC (Auto) Urine Casts (Auto) U Epithel Cells (Auto) Urine Bacteria (Auto) Urine HCG, Qual Stool Occult Blood Acetaminophen < 2.0 L Blood Type Antibody Screen Crossmatch Active Medications Generic Name Dose Route Start Last Admin Trade Name Freq PRN Reason Stop Dose Admin Sodium Chloride 1,000 mls @ 150 mls/hr 09/21/18 20:45 09/21/18 22:43 Normal Saline - IV 150 mls/hr ASDIR CONCEPCION Administration Iron Sucrose 300 mg/ Sodium 250 mls @ 166.667 mls/hr 09/22/18 13:00 Chloride IVPB 09/22/18 14:29 ONCE ONE Piperacillin Sod/Tazobactam 100 mls @ 200 mls/hr 09/22/18 15:00 Sod 4.5 gm/ Dextrose IVPB Q6H-IV CONCEPCION Protocol Iron Sucrose 300 mg/ Sodium 250 mls @ 166.667 mls/hr 09/22/18 15:00 Chloride IVPB 09/22/18 16:29 ONCE ONE Morphine Sulfate 2 mg 09/22/18 01:52 09/22/18 09:06 Morphine Sulfate IVPUSH 2 mg Q4H PRN Administration PAIN LEVEL 7 - 10 ASSESSMENT/PLAN: Pt. is a 42 y.o. Cameroonian-speaking F w/ PMHx. of cholecystitis and choledocolithiasis in April 2017 requiring ERCP, stent placement and subsequent cholecystectomy presents for intermittent abdominal pain for 3 weeks that has now become persistent for the last 2 days. #Sepsis (leukocytosis, fever, tachycardia) 2/2 acute cholangitis from occluded CBD stent - Continue Zosyn - Continue IV fluid - Maintain NPO - Plan for ERCP today w/ Dr Alanis. CT A/P: No pneumoperitoneum, CBD: 1.6cm (increased from 1.3cm last year), and partially occluded stent, supraumbilical hernia Abd. US: CBD 1.1cm, minimal to mild hepatomegaly, s/p CCY AST:267 , ALT:307, ALP:789 TBili: 4.8 #Acute blood loss anemia 2/2 abnormal uterine bleeding - Being transfused 2 units PRBCs - No evidence of GI bleeding - Monitor hemoglobin # Iron deficiency anemia 2/2 abnormal uterine bleeding from leiomyoma - Continue IV iron sucrose - [employer] evaluation. Recs appreciated #FEN NS@150cc/hr Monitor Electrolytes NPO #DVT ppx: NO AC as pt with Hgb 5.3 TEDs #Dispo: Med-Surg Visit type - Emergency Visit Emergency Visit: Yes ED Registration Date: 09/22/18 Care time: The patient presented to the Emergency Department on the above date and was hospitalized for further evaluation of their emergent condition. - New Patient This patient is new to me today: Yes Date on this admission: 09/22/18 - Critical Care Critical Care patient: No - Discharge Referral Referred to [facility] Med P.C.: No
[2018-09-22] MEDS ORDERED: EPINEPHrine INTRACARD 1:10,000 1 MG/10 ML DISP.SYRIN IVPUSH ONE (14:15)
[2018-09-22] MEDS ORDERED: PIPERACILLIN/TAZOB 4.5 GM 4.5 GM in DEXTROSE 5%-WATER 100 ML IVPB SCH ×3 (15:00→18:00)
[2018-09-22] MEDS ORDERED: EPINEPHrine 1:10,000 (P-F SYR) 1 MG/10 ML DISP.SYRIN ONE (15:18)
--- NOTE | 2018-09-22 15:35 | CONSULT ---
Consult - text type - Consultation Consultation Note: 42yo with longstanding history of uterine fibroids and resultant anemia. Seen in Apr 2017 for this problem and advised office follow up. Has not been compliant. CT scan and prior imaging reviewed. 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 Spoke with consulting attending and recommended outpatient follow up for further management of fibroids, which may include preparation for surgical management if desired. Vicky Hernandez MD
--- NOTE | 2018-09-22 15:47 | PN ---
Progress Note (short form) - Note Progress Note: GI Procedure Note: Please see ERCP report. Multiple large CBD stones were found. Unfortunately brisk bleeding developed when I extended the sphincterotomy which required restenting and epinephrine injections. The bleeding was controlled. I discussed the findings and bleeding complication via a electrolog operator as well as the need for transfer to [facility] where they can extract these stones with an ultrasonic lithotriptor. I 0ordered 2 units of FFP followed by PRBCs. I discussed the case with Jeramie Solo at [facility] who accepted the patient. Await call back form the residents
[2018-09-22] MEDS ORDERED: DEXTROSE 5%-WATER 100 ML IVPB ONE (16:38)
[2018-09-22] MEDS ORDERED: PIPERACILLIN/TAZOBACTAM 4.5 GM VIAL IVPB ONE (16:38)
--- NOTE | 2018-09-22 16:54 | CON.ID ---
Consult Referred by:: hospitalist Reason for Consultation:: fever - History of Present Illness Chief Complaint: intermittent RUQ pain History of Present Illness: 42 you female s/p choledocholithiasis with stent placement and cholycystectomy ,never went for f/u- admitted with worseing ruq pain over the last month she has been taking advil and tylenol no fatigue no fevers heavy menses (history of uterine fibroids) came to ed found to have leukocytosis, severe anemia, and abnl lfts ct scan with uterine enlargement c/w fibroids, increased intrahepatic ductal dilatation and a biliary stent, sono with dilated cbd 1.1cm she had fever last night as well (new for her) she is now s/p blood trnfusion as well as ERCP-multiple cbd stones- with bleeding, not all the stones were removed she reports her pain is now better history via daughter who is at bedside - History Source History Provided By: Family Member Limitations to Obtaining History: Language Barrier - Past Medical History Gastrointestinal: Yes: Gastritis Hepatobiliary: Yes: Cholelithiasis, Choledocholithiasis (biliary stent) Reproductive: Yes: Fibroids ...LMP: 04/30/17 ...: No Infectious Disease: No: STD's - Past Surgical History Past Surgical History: Yes: Cholecystectomy, Hernia Repair (umbilical hernia repair 2015 at [facility] ) - Alcohol/Substance Use Hx Alcohol Use: No History of Substance Use: reports: None - Smoking History Smoking history: Never smoked Have you smoked in the past 12 months: No Aproximately how many cigarettes per day: 0 - Social History Usual Living Arrangement: With Spouse ADL: Independent Occupation: Unemployed Place of : Other ([place]) History of Recent Travel: No Home Medications - Allergies Allergies/Adverse Reactions: Allergies Allergy/AdvReac Type Severity Reaction Status Date / Time No Known Allergies Allergy Verified 06/13/15 19:16 - Home Medications Home Medications: Ambulatory Orders Amoxicillin/Potassium Clav [Augmentin 875-125 Tablet] 1 each PO Q12H #7 tablet 05/24/17 Ferrous Sulfate [Feosol] 325 mg PO BID #60 tablet 05/24/17 Miscellaneous Medical Supply [Outpatient Order] 1 each MC ASDIR #1 misc Oxycodone HCl 5 mg PO Q12H #6 tablet MDD 2 tabs 02/25/18 Ursodiol [Actigal] 300 mg NR BID #60 capsule 05/24/17 Family Disease History - Family Disease History Family Disease History: Other: Father (alive: healthy), Mother (: 55: asthma ), Brother (2, healthy), Sister (3, healthy), Son (1 healthy), Daughter (2, 1 with raynaud's) Review of Systems - Review of Systems Constitutional: reports: Fever Eyes: reports: No Symptoms HENT: reports: No Symptoms Neck: reports: No Symptoms Cardiovascular: denies: Chest Pain, Edema Respiratory: denies: Cough, SOB Gastrointestinal: reports: Abdominal Pain. denies: Rectal Bleeding, Vomiting Blood Genitourinary: reports: No Symptoms Musculoskeletal: reports: No Symptoms Integumentary: reports: No Symptoms Neurological: reports: No Symptoms Physical Exam Vital Signs: Vital Signs Temperature 97.5 F L 09/22/18 15:11 Pulse Rate 79 09/22/18 16:16 Respiratory Rate 20 09/22/18 16:16 Blood Pressure 108/60 09/22/18 16:16 O2 Sat by Pulse Oximetry (%) 99 09/22/18 16:16 Constitutional: Yes: Well Nourished, No Distress Eyes: Yes: Conjunctiva Clear, Sclera Icterus HENT: Yes: Atraumatic, Normocephalic. No: Pharyngeal Erythema, Thrush Neck: Yes: Supple Cardiovascular: Yes: Regular Rate and Rhythm Respiratory: Yes: Regular, CTA Bilaterally Gastrointestinal: Yes: Normal Bowel Sounds, Soft. No: Tenderness, Epigastrium ...Rectal Exam: Yes: Deferred Extremities: Yes: WNL Edema: No Neurological: Yes: Alert, Oriented Labs: CBC, BMP 09/22/18 02:44 Laboratory Tests 09/22/18 02:44 WBC 18.3 H RBC 3.84 Hgb 5.3 L* Hct 19.6 L MCV 51.1 L MCH 13.8 L MCHC 27.0 L RDW 21.2 H Plt Count 838 H blood cultures pending Imaging - Results Cat Scan: Report Reviewed Ultrasound: Report Reviewed Problem List - Problems (1) Biliary sepsis Code(s): K83.09 - OTHER CHOLANGITIS (2) Choledocholithiasis Code(s): K80.50 - CALCULUS OF BILE DUCT W/O CHOLANGITIS OR CHOLECYST W/O OBST (3) Anemia Code(s): D64.9 - ANEMIA, UNSPECIFIED Qualifiers: Anemia type: other cause Other causes of anemia: other cause, not classified Qualified Code(s): D64.89 - Other specified anemias Assessment/Plan cultures sent, continue zosyn transfuse as needed for transfer to [facility]
[2018-09-22 17:17] LABS: BASO % 0.1 % (0-2.0); HEMATOCRIT 23.5 % (32.4-45.2); MCHC 29.8 g/dl (32.0-36.0); MEAN CELL VOLUME 57.7 fl (80-96); MEAN PLT VOLUME 8.4 fl (7.5-11.1); MONO % 5.5 % (3.8-10.2); NEUT % 90.4 % (42.8-82.8); PLATELET COUNT 704 K/MM3 (134-434); RBC 4.07 M/mm3 (3.60-5.2); RDW 31.1 % (11.6-15.6); WHITE BLOOD COUNT 20.7 K/mm3 (4.0-10.0)
[2018-09-22] MEDS ORDERED: PT OWN MED DRAWER 7, Y5N ONE (17:18)
[2018-09-22 17:28] LABS: MCH 17.2 pg (25.7-33.7)
[2018-09-22 18:21] VITALS: BP 117/69; PULSE 82; TEMP 99.3
[2018-09-22 20:16] LABS: ANISOCYTOSIS 3+
[2018-09-22 20:17] LABS: PLATELET ESTIMATE INCREASED
[2018-09-23 03:09] LABS: HEP.C VIRUS AB 0.2 s/co ratio (0.0-0.9)
--- NOTE | 2018-09-23 07:29 | DS ---
Physical Exam: SUBJECTIVE: Patient transferred to [facility] yesterday evening. OBJECTIVE: Vital Signs Period Temp Pulse Resp BP Sys/Santiago Pulse Ox Last 24 Hr 97.5 F-100.7 F 79-97 16-20 105-125/40-72 96-100 LABS Laboratory Results - last 24 hr 09/21/18 09/21/18 09/22/18 22:26 22:26 16:00 WBC 20.7 H RBC 4.07 Hgb 7.0 L Hct 23.5 L D MCV 57.7 L D MCH 17.2 L D MCHC 29.8 L RDW 31.1 H Plt Count 704 H MPV 8.4 Absolute Neuts (auto) 18.8 H Neutrophils % 90.4 H Neutrophils % (Manual) 84.0 H Band Neutrophils % 2.0 Lymphocytes % 4.0 L Lymphocytes % (Manual) 8.0 D Monocytes % 5.5 Monocytes % (Manual) 6 D Eosinophils % 0.0 Basophils % 0.1 Nucleated RBC % 0 Hypochromia 3+ Platelet Estimate Increased Anisocytosis 3+ Microcytosis 3+ Lactic Acid Hepatitis A IgM Ab Negative Hep Bs Antigen Negative Hep B Core IgM Ab Negative Hepatitis C Antibody 0.2 Blood Type O POSITIVE Antibody Screen Negative Crossmatch See Detail 09/22/18 16:00 WBC RBC Hgb Hct MCV MCH MCHC RDW Plt Count MPV Absolute Neuts (auto) Neutrophils % Neutrophils % (Manual) Band Neutrophils % Lymphocytes % Lymphocytes % (Manual) Monocytes % Monocytes % (Manual) Eosinophils % Basophils % Nucleated RBC % Hypochromia Platelet Estimate Anisocytosis Microcytosis Lactic Acid 1.3 Hepatitis A IgM Ab Hep Bs Antigen Hep B Core IgM Ab Hepatitis C Antibody Blood Type Antibody Screen Crossmatch HOSPITAL COURSE: Date of Admission:09/22/18 Pt. is a 42 y/o. Turkmen-speaking F w/ PMHx. of cholecystitis and choledocolithiasis in April 2017 requiring ERCP, stent placement and subsequent cholecystectomy who presented for intermittent abdominal pain for 3 weeks that had become persistent for the last 2 days. Initial WBC count was 16.2 ultimately climbing to 20.2. Pt was placed on Zosyn. CTAP--> 11x9 cm Uterine leiomyoma. S/P cholecystectomy, interval mildly increased extrahepatic and intrahepatic billiary tract dilation. There has been interval insertion of billiary stent. AST 267, ALT 307, ALP 789, and TBili 4.8. Initial H/H was 5.8/ 21.9. Pt received 2 U PRBCs as well as I.V Iron sucrose. Pt was evaluated by Bhumika who performed an ERCP on patient. ERCP revealed " Multiple large CBD stones were found. Unfortunately brisk bleeding developed when I extended the sphincterotomy which required restenting and epinephrine injections." Pt was ultimately transferred to [facility] for further management where they can extract the remaining stones with an ultrasonic lithotriptor. Date of Discharge: 09/23/18 Minutes to complete discharge: 35 Discharge Summary Reason For Visit: TRANSAMINASEMIA,ANEMIA,LOW HEMOGLOBIN,ABDOMINAL Condition: Stable - Instructions Diet, Activity, Other Instructions: Follow up at [address] [facility] [address] Hernandez for discussion and treatment of her fibroids Referrals: Vicky Hernandez MD [Staff Physician] - Disposition: TRANSFER ACUTE CARE/OTHER HOSP - Home Medications Comprehensive Discharge Medication List: Ambulatory Orders Amoxicillin/Potassium Clav [Augmentin 875-125 Tablet] 1 each PO Q12H #7 tablet 05/24/17 Ferrous Sulfate [Feosol] 325 mg PO BID #60 tablet 05/24/17 Miscellaneous Medical Supply [Outpatient Order] 1 each ASDIR #1 misc Oxycodone HCl 5 mg PO Q12H #6 tablet MDD 2 tabs 05/24/17 Ursodiol [Actigal] 300 mg NR BID #60 capsule 05/24/17 This patient is new to me today: No Emergency Visit: Yes ED Registration Date: 09/22/18 Care time: The patient presented to the Emergency Department on the above date and was hospitalized for further evaluation of their emergent condition. Critical Care patient: No - Discharge Referral Referred to [facility] Med P.C.: No
[2018-09-23 08:10] LABS: SERUM IRON SATURATION 2 % (15-55); TOTAL IRON BINDING CAPACITY 427 ug/dL (250-450)
--- NOTE | 2018-09-24 18:37 | PATH ---
Surgical Pathology Report Patient Name: KELLY BATRES Med. Rec. #: [id number] /Age/Gender: 1975 (Age: 42) / F Account: [id number] Location: [address] [place] [address]/[facility] Taken: 09/22/2018 Received: 09/23/2018 Reported: 09/24/2018 Physicians: Lauren Land M.D. Specimen(s) Received OLD STENT Clinical History Cholelithiasis status post stent Final Diagnosis OLD STENT, REMOVAL: CONSISTENT WITH STENT. GROSS EXAMINATION ONLY. Electronically Signed Terence Tom M.D. Gross Description Received fresh labeled "old stent," is a 15 cm in length blue, coiled portion of tubing, consistent with a biliary stent. No soft tissue is present. No sections are submitted, gross only. /09/23/2018 saudi/09/23/2018
== END 2018-09-22 20:19 | disposition short-term general hospital (02) | DRG 710 ==
LOC: JER 16:56 → JERBED 09-22 00:10 → J5S 09-22 11:27
PROVIDERS: ADMIT Internal Medicine; ATTEND Internal Medicine
PROC: 0FJB8ZZ Inspection of Hepatobiliary Duct, Via Natural or Artificial Opening Endoscopic (ICD-10-PCS; 2018-09-22)
PROC: 0FPB8DZ Removal of Intraluminal Device from Hepatobiliary Duct, Via Natural or Artificial Opening Endoscopic (ICD-10-PCS; 2018-09-22)
PROC: 30233N1 Transfusion of Nonautologous Red Blood Cells into Peripheral Vein, Percutaneous Approach (ICD-10-PCS; 2018-09-22)
PROC: 3E0G8GC Introduction of Other Therapeutic Substance into Upper GI, Via Natural or Artificial Opening Endoscopic (ICD-10-PCS; 2018-09-22)
PROC: 0F798DZ Dilation of Common Bile Duct with Intraluminal Device, Via Natural or Artificial Opening Endoscopic (ICD-10-PCS; principal; 2018-09-22 13:00)
DX: A41.9 Sepsis, unspecified organism (principal); E66.8 Other obesity; Z68.30 Body mass index [BMI] 30.0-30.9, adult; R50.9 Fever, unspecified; K80.31 Calculus of bile duct with cholangitis, unspecified, with obstruction; D25.9 Leiomyoma of uterus, unspecified; D50.0 Iron deficiency anemia secondary to blood loss (chronic); D72.829 Elevated white blood cell count, unspecified; R10.31 Right lower quadrant pain; R16.0 Hepatomegaly, not elsewhere classified; N13.30 Unspecified hydronephrosis; D62 Acute posthemorrhagic anemia; R17 Unspecified jaundice; K83.8 Other specified diseases of biliary tract; K29.60 Other gastritis without bleeding; D50.9 Iron deficiency anemia, unspecified; R00.0 Tachycardia, unspecified; N93.8 Other specified abnormal uterine and vaginal bleeding; D47.3 Essential (hemorrhagic) thrombocythemia
CPT/HCPCS: 36415; 36430; 36511; 74177-TC; 76000-TC-FY; 76705-TC; 80053; 80074; 80307; 81003; 82248; 82272; 82728; 83540; 83550; 83605; 83690; 83735; 84100; 84703; 85025; 85044; 85610; 85730; 86850; 86900; 86901; 86922; 87040; 88300-TC; 93005; 93010; 99285-25; J7030; P9038; P9058

== ENCOUNTER 2023-08-27 21:20 | Emergency (ER) | payer OTHER ==
[2023-08-27 21:28] VITALS: BP 117/72; PULSE 77; RESP 20; TEMP 97.8; BMI 36.1
[2023-08-27] MEDS ORDERED: METOCLOPRAMIDE HCL INJECTION 10 MG/2 ML VIAL ONE (22:09)
[2023-08-27] MEDS: LACTATED RINGERS SOLUTION 1000 ML INFUS.BAG IV ONE (22:28)
[2023-08-27] MEDS: METOCLOPRAMIDE HCL INJECTION 10 MG/2 ML VIAL IVPUSH ONE (22:28)
[2023-08-27 22:47] LABS: POTASSIUM 3.8 mmol/L (3.5-5.1)
[2023-08-27 22:49] LABS: ALBUMIN 3.3 g/dl (3.4-5.0); CALCIUM 8.2 mg/dL (8.5-10.1)
[2023-08-27 22:51] LABS: BLOOD UREA NITROGEN 15.4 mg/dL (7-18); MAGNESIUM 2.2 mg/dL (1.8-2.4)
[2023-08-27 22:52] LABS: CREATININE 0.7 mg/dL (0.55-1.3)
[2023-08-27 22:54] LABS: BILIRUBIN,TOTAL 0.4 mg/dL (0.2-1); TOT PROT 6.9 g/dl (6.4-8.2)
[2023-08-27 23:15] LABS: BASO % 0.8 % (0-2.0); EOS % 5.1 % (0-4.5); HEMOGLOBIN 7.8 GM/dL (10.7-15.3); LYMPH % 35.4 % (8-40); MCHC 28.8 g/dl (32.0-36.0); MEAN CELL VOLUME 57.4 fl (80-96); MEAN PLT VOLUME 8.6 fl (7.5-11.1); MONO % 9.1 % (3.8-10.2); NEUT % 49.6 % (42.8-82.8); PLATELET COUNT 492 10^3/uL (134-434); RBC 4.69 M/mm3 (3.60-5.2); RDW 19.9 % (11.6-15.6); WHITE BLOOD COUNT 6.6 K/mm3 (4.0-10.0)
[2023-08-27] MEDS ORDERED: KETOROLAC TROMETHAMINE 15 MG/ML VIAL ONE (23:18)
[2023-08-27 23:22] LABS: MCH 16.5 pg (25.7-33.7)
[2023-08-27] MEDS: KETOROLAC TROMETHAMINE 15 MG/ML VIAL IVPUSH ONE (23:23)
[2023-08-28 00:34] LABS: ANISOCYTOSIS 2+; OVALOCYTE 1+
[2023-08-28 00:35] LABS: PLATELET ESTIMATE ADEQUATE
== END 2023-08-28 00:14 | disposition home or self-care (01) ==
LOC: JER 21:20
PROC: 3E033GC Introduction of Other Therapeutic Substance into Peripheral Vein, Percutaneous Approach (ICD-10-PCS; principal; 2023-08-27)
PROC: 3E0333Z Introduction of Anti-inflammatory into Peripheral Vein, Percutaneous Approach (ICD-10-PCS; 2023-08-27)
DX: R51.9 Headache, unspecified (principal)
CPT/HCPCS: 36415; 70450-TC; 80053; 83735; 84703; 85025; 99284-25